=== PATIENT | female | born 1955 | race Caucasian/White ===

== ENCOUNTER → 2018-02-23 09:57 | Outpatient (CLI) | payer BC, SELFPAY ==
--- NOTE | 2018-02-23 10:01 | MM_ITS ---
MM Dig screening mamm BI w/CAD CAD Screening ORDERING PHYSICIAN : Lis Hernandez MD PATIENT AGE: 62 years GENDER: Female COMPARISON: Previous mammograms: October 2016, 199903 October 2013 INDICATION: No hormones. No new complaints Family history. Mother with breast cancer age 79 postmenopausal. TECHNIQUE: Standard CC and MLO images were obtained. R2 CAD reviewed. FINDINGS: Moderately dense breast bilaterally but with similar architecture and appearance to the previous studies No dominant mass nor suspicious calcifications.. Follow-up in one year adequate IMPRESSION: . stable bilateral mammogram. Moderately dense breast. Bilateral follow-up in one year recommended. BI-RADS Category: 1 Negative RECOMMENDED FOLLOW-UP: 1YR - 1 YEAR FOLLOW-UP (A letter has been sent to the patient regarding results of the study.)
--- NOTE | 2018-02-23 10:01 | XR_ITS ---
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 Low calcium intake Postmenopausal female. Takes levothyroxine and vitamin D. Also takes Actonel TECHNIQUE: DEXA scan hip and lumbar spine The most complete data summary and color graphic presentation of the today's ( and any prior ) DEXA findings are available in PACS. Definition and treatment guidelines included. COMPARISON: October 2016 DEXA LUMBAR SPINE: Normal bone density L1 and L3 vertebral body demonstrates the lowest T score = 1.0 with. The lower density L1 vertebra BMD equals 1.255 g/cm sq Overall mean lumbar L1-L4 T score 1.5 with BMD1.36 g/cm sq . prior DEXA the mean T score 1.1 with BMD was1.314g/cm sq Thus when comparing today's study to the prior exam there's been a 3.6% % increasing mean bone density at the lumbar spine. HIPS: Femoral neck density is best predictor of hip fracture risk . Left femoral neck demonstrates the lowest T score -2.4 with BMD0.698 g/cm sq . Right femoral neck T score -2.2 with BMD 0.737 Averaging region included gives today's overall Hip Mean T score -0.9 with BMD0.897 g/cm sq . 2014 DEXA overall hip T score -1.1 with mean BMD0.87 g/cm sq the Although this reflects a 3% increase decrease in overall mean bone density at the hips in the interval. We continue see osteoporosis at the femoral necks bilaterally IMPRESSION 1. LUMBAR SPINE: Normal bone density throughout lumbar spine and at all vertebral levels sampled 2. HIPS: Osteoporosis at Femoral Necks bilaterally most notable finding and hips.. T score at Left femoral neck -2.4 and right femoral neck -2.2 The however the overall averaged hip T score is = -0.9, With overall slight improvement in bone density both hip since 2015 prior DEXA WHO criteria for post-menopausal, Women: Normal: T-score at or above -1 SD Osteopenia: T-score between -1 and -2.5 SD Osteoporosis: T-score at or below -2.5 SD
== END ==
PROVIDERS: Family Provider Family Medicine; PCP Family Medicine; Visit Provider Family Medicine
DX: Z12.31 Encounter for screening mammogram for malignant neoplasm of breast (principal); N60.19 Diffuse cystic mastopathy of unspecified breast; M81.0 Age-related osteoporosis without current pathological fracture
CPT/HCPCS: 77067; 77080

== ENCOUNTER → 2019-02-25 09:40 | Outpatient (CLI) | payer OTHER, SELFPAY ==
--- NOTE | 2019-02-25 09:43 | MM_ITS ---
MM Dig screening mamm BI w/CAD ORDERING PHYSICIAN : Lis Hernandez MD PATIENT AGE: 63 years GENDER: Female COMPARISON: October 20162013 INDICATION: Routine screening mammogram.No hormones. No new complaints. Family history: Mother with breast cancer age 79 TECHNIQUE: Standard CC and MLO images were obtained. R2 CAD reviewed. FINDINGS: Moderately dense breast bilaterally, but with similar, stable appearance to previous studies. Mild asymmetry again noted. No discrete suspicious or dominant mass. No suspicious calcifications . Architectural distortion. RIGHT BREAST: Right breast appear stable. No significant new findings The slightly more evident glandular tissue at the superior right breast again noted is a long-standing stable feature yielding a mild asymmetry here. No new areas of concern LEFT BREAST: Left breast appears stable IMPRESSION: Stable mammogram with no significant new findings. Moderate dense breast BI-RADS Category: 1 Negative RECOMMENDED FOLLOW-UP: 1YR 1 YEAR FOLLOW-UP (A letter has been sent to the patient regarding results of the study.)
--- NOTE | 2019-02-25 09:44 | XR_ITS ---
XR DEXA axial skeleton HISTORY: ITS.REASON: OSTEOPENIA ORDERING PHYSICIAN: Lis Hernandez MD PATIENT AGE: 63 years COMPARISON: 02/23/2018 FINDINGS: The BMD measured at the Left femoral neck is 0.728 g/cm squared with a T score of -2.2. This is considered Osteopenic according to the World Health Organization criteria. Fracture risk is Moderate. Treatment is advised. The L1 L4 density has a T score of 1.2 which is decreased by 3%. The mean hip density has decreased also by 3%. IMPRESSION: Osteopenia with moderate fracture risk. Treatment is suggested. Recommend follow-up exam in February 2021
== END ==
PROVIDERS: PCP Family Medicine; Visit Provider Family Medicine
DX: Z12.31 Encounter for screening mammogram for malignant neoplasm of breast (principal); M85.89 Other specified disorders of bone density and structure, multiple sites
CPT/HCPCS: 77067; 77080

== ENCOUNTER → 2019-05-27 10:09 | Outpatient (CLI) | payer OTHER, SELFPAY ==
--- NOTE | 2019-05-27 10:14 | XR_ITS ---
XR sacrum coccyx min 2V CLINICAL INDICATION: Posttraumatic pain ITS.REASON: COCCYX PAIN ORDERING PHYSICIAN: Agnieszka Keita APRN PATIENT AGE: 63 years Comparison: None FINDINGS: No fracture or dislocation is evident. No lytic or blastic change. Facet arthritic changes are present at L4-L5 and L5-S1. Central pelvic calcification is noted IMPRESSION: No acute fracture
== END ==
PROVIDERS: PCP Family Medicine; Visit Provider Nurse Practitioner Family
DX: M53.3 Sacrococcygeal disorders, not elsewhere classified (principal)
CPT/HCPCS: 72220

== ENCOUNTER → 2020-05-19 07:39 | Outpatient (CLI) | payer OTHER, SELFPAY ==
--- NOTE | 2020-05-19 07:44 | MM_ITS ---
PROCEDURE: MM DIG SCREENING MAMM BI W/CAD Digital Breast Tomosynthesis Included CLINICAL INDICATION: SCREENING There is a history of breast cancer in the patient's mother diagnosed after menopause. COMPARISON: [facility] DIG MAMM-SCREEN ANDREA from 10/24/2016 [facility] MM Dig screening mamm BI w/CAD from 02/23/2018 [facility] MM Dig screening mamm BI w/CAD from 02/25/2019 TECHNIQUE: Standard CC and MLO images and 3D Tomosynthesis was obtained. R2 CAD reviewed. FINDINGS: Moderate diffuse fibroglandular densities are seen in both breast. There is slightly asymmetrical glandular elements upper-outer quadrant right breast. There is benign-appearing calcification right breast there are couple of tiny benign-appearing nodular densities near the axillary tail left breast which are stable and unchanged from previous exams. There is no suspicious lesion and no suspicious microcalcifications. IMPRESSION: Moderate breast density with no suspicious lesions seen BI-RAD Category: 2 Benign Finding(s) FOLLOW-UP: 1YR 1 Year Follow-up (A letter has been sent to the patient regarding results of the study.) Dictated by: Dr. Jan Johnson MD 05/21/2020 07:[address] Jan Johnson MD in [place] 05/21/2020 07:05
== END ==
PROVIDERS: PCP Family Medicine; Visit Provider Family Medicine
DX: Z12.31 Encounter for screening mammogram for malignant neoplasm of breast (principal); N60.19 Diffuse cystic mastopathy of unspecified breast
CPT/HCPCS: 77063; 77067

== ENCOUNTER → 2020-07-09 08:57 | Outpatient (CLI) | payer OTHER, SELFPAY ==
[2020-07-09 10:34] LABS: Coronavirus 19 IgG Antibody Negative (Negative); Coronavirus 19 IgM Antibody Negative (Negative)
== END ==
PROVIDERS: Visit Provider Internal Medicine Gastroenterology
DX: Z01.818 Encounter for other preprocedural examination (principal); Z12.11 Encounter for screening for malignant neoplasm of colon
CPT/HCPCS: 36415; 86328

== ENCOUNTER 2020-07-10 09:38 | Day surgery (SDC) | payer OTHER, SELFPAY ==
[2020-07-06 12:30] VITALS: BMI 23.6
[2020-07-10] VITALS (7 sets, daily range): BP systolic 94–148; BP diastolic 56–86; PULSE 53–92; RESP 14–18; TEMP 36.3–36.5; O2SAT 97–100
--- NOTE | 2020-07-10 12:12 | HMH.ANESCL ---
[facility] Anesthesia Checklist - Patient Identification Patient Identification: Arm Band - Structural Data Admitted From: Home Planned Operative Procedure/s: colonoscopy Consent for Planned Operative Procedure(s) Verified: Yes Verified Documents: Surgical Consent, History and Physical - NPO Status Verified Time NPO: 00:00 - Additional verifications Anesthesia Reactions: No - Airway Assessment C-Spine Mobility Assessed: Yes (mp2) TMJ Mobility Assessed: Yes Dentition: Good Dentition - Neurological Assessment Level of Consciousness: Awake, Alert - Anesthesia Plan Anesthesia Risk discussed: Yes Anesthesia Plan: Verified ASA Class: II Anesthesia Type: MAC [facility] History I have reviewed the patient's past medical history: Yes Medical History: Reports:: Hypertension Denies:: Cancer, Diabetes Mellitus Type 2, Internal Pacemaker, MRSA, Seizures *Have you ever received a pneumonia vaccine?: Yes *Have you received a flu vaccine this season?: Yes Anesthesia experience/problems:: nac Other Surgeries: Yes: Cholecystectomy. No: Pacemaker Amputation: No Fractures: No - *Social History Last grade of school completed: High school graduate Smoking Status: Former smoker Tobacco Type: cigarettes # Packs/Day (cigarettes): 1 Smoking End Date: 2009 Alcohol Intake: current Alcohol Intake Frequency:: holidays/special occasions only Substance Use Type: denies use *Occupational Status:: retired *Travel in the last 8 weeks: None Family Hx:: No significant family history
--- NOTE | 2020-07-10 12:28 | P.PCN_ITS ---
[facility] Procedure Note Procedure Note:: Colonoscopy Procedure Report: Colonoscopy with cold biopsies Endoscopist: Jordi Palacio II, MD Referring physician: Manish Hernandez MD Date of Procedure: July 10, 2020 Equipment: Olympus 180 variable stiffness pediatric colonoscope Sedation: MAC sedation Indication: Mrs. Billy is a 64-year-old female who is here for initial screening colonoscopy. She reports no abdominal pain, weight loss, change in her bowel habits or rectal bleeding. She reports no family history of colon cancer. Procedure: Prior to the procedure, a history and physical exam was performed, and patient's medications and allergies were reviewed. The risks, benefits and alternatives of the sedation and procedure were discussed with the patient. All questions were answered and informed consent was obtained. The patient was brought to the procedure room. Patient identification and proposed procedure were verified by the physician and the nurse. The patient was placed in a left lateral decubitus position and the scope was passed under direct vision. Throughout the procedure, the patient's blood pressure, pulse, and oxygen saturations were monitored continuously. The colonoscopy was accomplished without difficulty. The patient tolerated the procedure well. Findings: On digital rectal examination there was normal rectal tone. There were no external hemorrhoids. The colonoscope was introduced through the anal canal to the rectum and advanced to the cecum. The ileocecal valve and appendiceal orifice were identified. The scope was advanced a short distance into the ileum which appeared grossly normal. The scope was then withdrawn into the colon. The cecum, ascending, transverse, descending and sigmoid colon were grossly normal. There was a diminutive 2 to 3 mm polyp in the rectum that appeared to be hyperplastic and was removed via cold biopsy.. There were no mucosal abnormalities identified. Upon retroflexion within the rectum there were grade 1-2 internal hemorrhoids.The preparation was excellent throughout with [place] Preparation Score of 9. The cecal time was 12 minutes. Impression: 1. Diminutive hyperplastic appearing rectal polyp (2 to 3 mm) otherwise normal colonoscopy with intubation of the terminal ileum Plan: I will follow up the polyp pathology and recommend repeat colonoscopy again in 10 years based upon the polyp histology. I would encourage fiber supplementation on a long-term daily maintenance basis.
== END 2020-07-10 13:28 | disposition home or self-care (01) ==
LOC: OUTP 09:38
PROVIDERS: PCP Family Medicine; Visit Provider Internal Medicine Gastroenterology
PROC: 0DJD8ZZ Inspection of Lower Intestinal Tract, Via Natural or Artificial Opening Endoscopic (ICD-10-PCS; CPT 45378; principal; 2020-07-10 11:00)
DX: Z12.11 Encounter for screening for malignant neoplasm of colon (principal); K62.1 Rectal polyp; I10 Essential (primary) hypertension; Z90.49 Acquired absence of other specified parts of digestive tract; Z87.891 Personal history of nicotine dependence; E03.9 Hypothyroidism, unspecified; Z79.899 Other long term (current) drug therapy; Z79.82 Long term (current) use of aspirin
CPT/HCPCS: 45384

== ENCOUNTER → 2021-01-06 10:33 | Outpatient (CLI) | payer BC, SELFPAY ==
--- NOTE | 2021-01-06 10:45 | XR_ITS ---
PROCEDURE: XR FOOT LT MIN 3V CLINICAL INDICATION: LT FOOT FASCITIS Arch pain COMPARISON: CR FTL3 FOOT-LT-3 VIEWS from 12/22/2014 CR FTR3 FOOT-RT-3 VIEWS from 11/15/2016 FINDINGS: There is moderate 1st metatarsophalangeal degenerative change. There is a small incidental inferior calcaneal spur. There is indistinctness the soft tissue planes along the plantar aspect of the foot which can be associated with fasciitis. Correlate clinically. There are no other areas of degenerative change or bony abnormalities. IMPRESSION: Soft tissue appearance which could be a consistent with a clinical diagnosis of fasciitis. Dictated by: Diana Brandon MD 01/06/2021 13:25 Diana Brandon MD in [place] 01/06/2021 13:25
== END ==
PROVIDERS: PCP Family Medicine; Visit Provider Family Medicine
DX: M72.2 Plantar fascial fibromatosis (principal)
CPT/HCPCS: 73630

== ENCOUNTER → 2021-02-03 12:39 | Outpatient (CLI) | payer BC, SELFPAY ==
--- NOTE | 2021-02-03 12:59 | US_ITS ---
PROCEDURE: US TRANSVAGINAL CLINICAL INDICATION: CYSTITIS Recurrence of bacterial infection COMPARISON: No exams were available for comparison FINDINGS: UTERUS: 7cm x 4cmx 4cm with a combined endometrial thickness of 2mm LEFT OVARY: [id number] with a volume of 8.2ml. RIGHT OVARY: [id number] with a volume of 0.7ml. The uterus is retroflexed. There is 1.8 x 1.2 cm area heterogeneous echogenicity with central calcification along the anterior aspect of the body of the uterus consistent with a fibroid. There is an additional 2 point by 1.2 cm fibroid along the body of the uterus anteriorly and a 2.1 cm fibroid along the fundus of the uterus. Is a septated left ovarian left ovarian cyst at 3 x 2 cm. No cul-de-sac fluid is evident. IMPRESSION: Retroflexed uterus with at least 3 fibroids. Septated 3 cm left ovarian cyst. Suggest 6 month follow-up to confirm stability or resolution Dictated by: Wallace Hernández MD 02/03/2021 18:31 Wallace Hernández MD in [place] 02/03/2021 18:31
== END ==
PROVIDERS: PCP Family Medicine; Visit Provider Family Medicine
DX: N30.00 Acute cystitis without hematuria (principal)
CPT/HCPCS: 76830

== ENCOUNTER → 2022-02-04 10:02 | Outpatient (CLI) | payer BC, MEDICARE, SELFPAY ==
--- NOTE | 2022-02-04 10:10 | MM_ITS ---
PROCEDURE INFORMATION: Exam: MG Bilateral Screening 3D Mammography Exam date and time: 02/04/2022 10:22 AM Age: 66 years old Clinical indication: Encounter for screening mammogram for malignant neoplasm of breast TECHNIQUE: Imaging protocol: Bilateral Screening tomosynthesis and 2D mammography including computer-aided detection (CAD) when performed. COMPARISON: 1. MG MM DIG SCREENING MAMM BI W/CAD 05/19/2020 7:55 AM 2. MG [facility] MM Dig screening mamm BI w/CAD 02/25/2019 10:06 AM FINDINGS: MAMMOGRAPHY: Breast composition: The breast tissue is heterogeneously dense, which may obscure small masses. Mass: None. Architectural distortion: None. Calcifications: No suspicious calcifications. Asymmetric density: None. Skin thickening: None. Axillary adenopathy: None. IMPRESSION: No mammographic evidence of malignancy. Annual screening is recommended unless otherwise clinically indicated. ASSESSMENT: BI-RADS Category 1: Negative
== END ==
PROVIDERS: PCP Family Medicine; Visit Provider Family Medicine
DX: Z12.31 Encounter for screening mammogram for malignant neoplasm of breast (principal)
CPT/HCPCS: 77063; 77067

== ENCOUNTER → 2023-05-29 09:14 | Outpatient (CLI) | payer BC, MEDICARE, SELFPAY ==
--- NOTE | 2023-05-29 09:18 | XR_ITS ---
FINAL REPORT CLINICAL HISTORY: Osteoporosis screening COMPARISON: None FINDINGS: Using L1-4, the bone mineral density of the spine is 1.118 g/cm2, corresponding to T-score of 0.6, within the normal range. Using the left hip, the bone mineral density of the femoral neck is 0.591 g/cm2, corresponding to a T-score of -2.3, consistent with low bone density. Using the right hip, the bone mineral density of the femoral neck is 0.601 g/cm2, corresponding to a T-score of -2.2, consistent with low bone density. FRAX is not reported because the patient is being treated for osteoporosis. NOTE: T-score: Standard deviation compared with peak bone mass of young adult mean. *Following the recommendations of the International Society of Bone densitometry, classification of hip BMD is based on the lower of two T-scores; total hip or femoral neck. IMPRESSION: Normal bone mineral density of the lumbar spine, with diminished bone mineral density in the bilateral hips consistent with low bone density. Reviewed, Interpreted and Dictated by Charles Garrison III, MD Transcribed by Mariam El Authenticated and . [facility]
--- NOTE | 2023-05-29 09:19 | MM_ITS ---
PROCEDURE INFORMATION: Exam: MG Bilateral Screening 3D Mammography Exam date and time: 05/29/2023 9:09 AM Age: 67 years old Clinical indication: Screening examination TECHNIQUE: Imaging protocol: Bilateral Screening tomosynthesis and 2D mammography including computer-aided detection (CAD) when performed. COMPARISON: 1. MG MM DIG SCREENING MAMM BI W/CAD 02/04/2022 10:22 AM 2. MG MM DIG SCREENING MAMM BI W/CAD 05/19/2020 7:55 AM FINDINGS: MAMMOGRAPHY: Breast composition: The breasts are heterogeneously dense, which may obscure small masses. Mass: None. Architectural distortion: None. Calcifications: No suspicious calcifications. Asymmetric density: None. Skin thickening: None. Axillary adenopathy: None. IMPRESSION: No mammographic evidence of malignancy. Annual screening is recommended unless otherwise clinically indicated. ASSESSMENT: BI-RADS Category 1: Negative
== END ==
PROVIDERS: PCP Family Medicine; Visit Provider Family Medicine
DX: Z12.31 Encounter for screening mammogram for malignant neoplasm of breast; Z78.0 Asymptomatic menopausal state
CPT/HCPCS: 77063; 77067; 77080

== ENCOUNTER 2024-07-25 09:34 | Outpatient (CLI) | payer MEDICARE, SELFPAY ==
--- NOTE | 2024-07-25 09:53 | MM_ITS ---
PROCEDURE INFORMATION: Exam: MG Bilateral Screening 3D Mammography Exam date and time: 07/25/2024 9:42 AM Age: 68 years old Clinical indication: Screening examination TECHNIQUE: Imaging protocol: Bilateral Screening tomosynthesis and 2D mammography including computer-aided detection (CAD) when performed. COMPARISON: 1. MG MM DIG SCREENING MAMM BI W/CAD 05/29/2023 9:09 AM 2. MG MM DIG SCREENING MAMM BI W/CAD 02/04/2022 10:22 AM FINDINGS: MAMMOGRAPHY: Breast composition: There are scattered areas of fibroglandular density. Mass: None. Architectural distortion: None. Calcifications: No suspicious calcifications. Asymmetric density: None. Skin thickening: None. Axillary adenopathy: None. IMPRESSION: No mammographic evidence of malignancy. Annual screening is recommended unless otherwise clinically indicated. ASSESSMENT: BI-RADS Category 1: Negative
== END 2024-07-25 23:59 | disposition home or self-care (01) ==
LOC: RAD 09:35
PROVIDERS: PCP Family Medicine; Visit Provider Family Medicine
DX: Z12.31 Encounter for screening mammogram for malignant neoplasm of breast (principal)
CPT/HCPCS: 77063; 77067

== ENCOUNTER 2025-05-28 13:38 | Outpatient (CLI) | payer MEDICARE, SELFPAY ==
--- OUTSIDE RECORDS SUMMARY | 2024-12-09 04:15 | XMS_ITS ---
Author Organization [facility] Address 1210 [facility] 36 [facility] [address] [place] [id number] Care Team Providers Care Rug Dry Room Attendant Name Role Phone Mookie Hernandez Primary Care Provider RAOUL MCLAUGHLIN Unavailable Unavailable Results Component Value Reference Range Notes P-Comprehensive Metabolic Pa twila (CMP) Reviewed date:12/12/2024 12:41:50 PM Interpretation:Normal Performing Lab: Notes/Report: Test performed by [facility], [address] , [address], [place] [address] Heber Morris MD, Spindraw Operator CLIA: [id number] Sodium 143 135-145 mmol/L Potassium 4.5 3.5-5.3 [...] Interpretation:satisfactory Performing Lab: Notes/Report: Test performed by [facility], [address] , [address], [place] [address] Heber Morris MD, Spindraw Operator CLIA: [id number] Cholesterol 198 <200 mg/dL Triglycerides 130 <150 [...] Interpretation:Normal Performing Lab: Notes/Report: Test performed by [facility] [address] , [address], [place] [address] Heber Morris MD, Spindraw Operator CLIA: [id number] TSH 2.43 0.43-5.25 mU/L REASON FOR VISIT blood work Encounters Encounter Location Date Provider Diagnosis [facility] [address] [facility] [address] [place] [id number] 12/09/2024 Mookie Hernandez Essential hypertensi on I10 ; Pure hypercholesterolemia E78.00 and Hypothyroidism (acquired) E03.9 Assessments Encounter Date Diagnosis (ICD Code) Assessment Notes Treatment Notes Treatment Clinical Notes Section Notes 12/09/2024 Essential hypertensi on (ICD-10 - I10) 12/09/2024 Pure hypercholesterolemia (ICD-10 - E78.00) 12/09/2024 Hypothyroidism (acquired) (ICD-10 - E03.9) Plan Of Treatment Next Appt Details Provider Name:Mookie Kramer er, 07/17/2025 01:45:00 PM, [address], [address], [place], [phone], Progress Notes * Antonio SERRANO: 6 (69 yo F)Acc No.[id number]:12/09/2024 Patient: Omar MCWILLIAMSCara Provider: Mookie Hernandez M.D. :1955 A ge:69 Y S ex:Female Date:12/09/2024 Address:[address] [place] [address] [id number] Subjective: * Chief Complaints: [...] Electronic signature of Mookie Hernandez MD on 05/28/2025 at 01:41 PM EDT Sign off status: Pending * Provider: Mookie Hernandez M.D. Date: 0 12/09/2024 Generated for Racquel lei/Yaima/Isaelitting on: 0 05/28/2025 01:41 PM EDT
--- OUTSIDE RECORDS SUMMARY | 2025-04-17 09:30 | XMS_ITS ---
[facility] Address 1210 [facility] [address] [place] [phone] Care Team Providers Care Group Art Supervisor Name Role Phone Mookie Hernandez Primary Care Provider RAOUL MCLAUGHLIN Unavailable Unavailable Allergies No Known Allergies REASON FOR VISIT 4 month ckup, Needs labs, bone density screening, & Prevnar vaccine Medications Medication SIG (Take, Route, Frequency, Duration) Notes Start Date End Date Status Hyoscyamine Sulfate 0.125 MG 1 tab(s) or ally three times a day as needed; Duration: 30 day(s) Active Risedronate Sodium 35 MG 1 tab(s) orally once a week; Duration: 30 day(s) Active Citracal Slow Release 600-40-500 MG-MG-UNIT 2 tab(s) orally once a day (in the morning); Duration: 30 day(s) 11/09/2016 Active Co-Enzyme Q10 200 MG as directed Orally 11/27/2023 Active Vitamin D3 50 MCG (1999 UT) 1 tab(s) ora lly once a day 11/05/2013 Active Levothyroxine Sodium 25 MCG 1 tablet in the morning on an empty stomach Orally Once a day; Duration: 30 days Active PreserVision AREDS 2 - as directed Orally Active Lisinopril 5 MG 1 tab(s) orally once a day; Duration: 30 days Active oxyBUTYnin Chloride 5 MG 1 tablet Orally Twice a day; Duration: 30 days 03/13/2025 Active Pitavastatin Calcium 2 mg 1 tablet Orall y Once a day; Duration: 30 days Active buPROPion HCl ER (SR) 100 MG 1 tablet in the morning Orally Once a day; Duration: 30 day(s) 04/17/2025 Active Immunizations Vaccine Route Administration Date Status Comme nts Prevnar (PCV20) IM Intramuscular 04/17/2025 Pending Vital Signs Weight 148.6 lbs 04/17/2025 Blood pressure systolic 120 mm Hg 04/17/20 25 Blood pressure diastolic 80 mm Hg 025 Heart Rate 61 /min 04/17/2025 Height 64 in 04/17/2025 BMI 25.5 kg/m2 04/17/2025 Encounters Encounter Location Date Provider Diagnosis [facility] [address] [place] [id number] 04/17/2025 Mookie Hernandez Essential hypertensi on I10 ; Osteopenia M85.80 ; Pure hypercholesterolemia E78.00 ; Encounter for immunization Z23 ; Weight disorder R63.8 and BMI 25.0-25.9,adult Z68.25 Assessments Encounter Date Diagnosis (ICD Code) Assessment Notes Treatment Notes Treatment Clinical Notes Section Notes 04/17/2025 Essential hypertensi on (ICD-10 - I10) 04/17/2025 Osteopenia (ICD-10 - M85.80) 04/17/2025 Pure hypercholesterolemia (ICD-10 - E78.00) 04/17/2025 Encounter for immunization (ICD-10 - Z23) 04/17/2025 Weight disorder (ICD -10 - R63.8) 04/17/2025 BMI 25.0-25.9,adult (ICD-10 - Z68.25) Plan Of Treatment Medication Medication Name Sig Start Date Stop Date Notes buPROPion HCl ER (SR) 100 MG 1 tablet in the morning Orally Once a day; Duration: 30 day(s) 04/17/2025 Pending Test Test Name Order Date DEXA Hip and Spine 04/17/2025 Next Appt Details Follow Up: 3 Months, Reason: Provider Name:Mookie Kramer er, 07/17/2025 01:45:00 PM, [address], [address], [place], [phone], Progress Notes * Antonio SERRANO: 6 (69 yo F)Acc No.[id number]:04/17/2025 Progress Notes Patient: Cara LOAIZA Provider: Mookie Hernandez M.D. :1955 A ge:69 Y S ex:Female Date:04/17/2025 Address:[address] [place] [address] [id number] Subjective: * Chief Complaints: * 1 . 4 month ckup. 2. Needs labs, bone density screening, & Prevnar vaccine. * HPI: C ardiology: The patient is here for a check up on Hypertension and Hypothyroidism. Pt states she is doing good and denies any new concerns. Pt is not fasting. Denies : Chest Pain. [...] bite , elbow fracture 02/2014, cataracts OU -2022. * Hospitalization/Major Diagno stic Procedure: H ER- flank pain, colic 09/06/19. * Family History: F ather: alive, Alzheimers. M other: alive. S iblings: sisters with hyperlipidemia.?1 brother(s) , 2 sister(s) . 1 son(s) , 1 daughter(s) . . Brother with history of CAD, [place]. * Social History: C URRENT TOBACCO USE [...] tab(s) orally once a week , Taking Hyoscyamine Sulfate 0.125 MG Tablet Disintegrating 1 tab(s) orally three times a day as needed , Taking Levothyroxine Sodium 25 MCG Tablet 1 tablet in the morning on an empty stomach Orally Once a day , Taking Lisinopril 5 MG Tablet 1 tab(s) orally once a day , Taking oxyBUTYnin Chloride 5 MG Tablet 1 tablet Orally Twice a day , Taking Pitavastatin Calcium 2 mg Tablet 1 tablet Orally Once a day , Medication List reviewed and reconciled with the patient * Allergies: N .K.D.A. Objective: * Vitals: W t: 148.6, Temp: 98.3, BP: 120/80, HR: 61, Nurse: RAKAN, Ht: 64, BMI:25.5. * Examination: G eneral Examination: General Appearance: [...] o leg edema. Assessment: * Assessment: 1. E ssential hypertension - I10 2 . O steopenia - M85.80 3 . P ure hypercholesterolemia - E78.00 4 . E ncounter for immunization - Z23? 5. W eight disorder - R63.8 6 . B [place] 25.0-25.9,adult - Z68.25 Plan: * Treatment: 2.?Weight disorder? Start buPROPion HCl ER (SR) Tablet Extended Release 12 Hour, 100 MG, 1 tablet in the morning, Orally, Once a day, 30 day(s), 30.?? * Immunizations: Prevnar (PCV20) : 0.5 mL (Route: Intramuscular) on Left Deltoid (Pending) (Encounter for immunization) * Procedure Codes: G 2211 Complex e/m visit add on, G8950 PREHTN/HTN BP DOC INDCD F/U DOC, G8752 MOST RECENT SYSTOLIC BP < 140MM HG, G8754 MOST RECENT DIASTOLIC BP < 90MM HG, G8420 BMI<30 AND >=22 CALC & DOCU, 4040F PNEUMOC IMM ORDER/ADMIN, 3017F COLORECTAL CA SCREEN DOC REV * Preventive Medicine: Screening / Special Tests: C olonoscopy with Dr Palacio with polyps, recommend f/u in 10 years. * Follow Up: 3 Months * Images: Billing Information: * Visit Code: 68180 Office Visit, Est Pt., Level 4. * Procedure Codes: G2211 Complex e/m visit add on. G8950 PREHTN/HTN BP DOC INDCD F/U DOC. G8752 MOST RECENT SYSTOLIC BP < 140MM HG. G8754 MOST RECENT DIASTOLIC BP < 90MM HG. G8420 BMI<30 AND >=22 CALC & DOCU. 4040F PNEUMOC IMM ORDER/ADMIN. 3017F COLORECTAL CA SCREEN DOC REV. * Electronic signature of Mookie Hernandez MD on 05/28/2025 at 01:41 PM EDT Sign off status: Pending * Provider: Mookie Hernandez M.D. Date: 04/17/2025 Generated for Racquel lei/Yaima/eTransmitting on: 0 05/28/2025 01:41 PM EDT History and Physical Notes * HPI [...]
--- OUTSIDE RECORDS SUMMARY | 2025-05-26 10:00 | XMS_ITS ---
Author [facility] Address 1210 [facility] [address] [place] [phone] Care Team Providers Care Storage Manager Name Role Phone Mookie Hernandez Primary Care Provider RAOUL MCLAUGHLIN Unavailable Unavailable Allergies No Known Allergies REASON FOR VISIT lump under arm Medications Medication SIG (Take, Route, Frequency, Duration) Notes Start Date End Date Status Hyoscyamine Sulfate 0.125 MG 1 tablet on the tongue and allow to dissolve as needed orally three times a day as needed; Duration: 30 days Active buPROPion HCl ER (SR) 100 MG 1 tablet in the morning Orally Once a day; Duration: 30 day(s) 04/17/2025 Not-Taking Risedronate Sodium 35 mg TAKE ONE TABLET BY MOUTH ONCE WEEKLY; Duration: 28 Active Levothyroxine Sodium 25 MCG 1 tablet in the morning on an empty stomach Orally Once a day; Duration: 30 days Active Myrbetriq 50 MG 1 tablet Orally Once a day; Duration: 30 days Active Vitamin D3 50 MCG (1999 UT) 1 tab(s) orally once a day 11/05/2013 Active Co-Enzyme Q10 200 MG as directed Orally 11/27/2023 Active Pitavastatin Calcium 2 mg 1 tablet Orall y Once a day; Duration: 30 days Active Lisinopril 5 MG 1 tab(s) orally once a day; Duration: 30 days Active oxyBUTYnin Chloride 5 MG 1 tablet Orally Twice a day; Duration: 30 days 03/13/2025 Not-Taking PreserVision AREDS 2 - as directed Orally Active Citracal Slow Release 600-40-500 MG-MG-UNIT 2 tab(s) orally once a day (in the morning); Duration: 30 day(s) 11/09/2016 Active Vital Signs Weight 147.2 lbs 05/26/2025 Blood pressure systolic 120 mm Hg 05/26/20 25 Blood pressure diastolic 80 mm Hg 025 Heart Rate 69 /min 05/26/2025 Height 64 in 05/26/2025 BMI 25.26 kg/m2 05/26/2025 Encounters Encounter Location Date Provider Diagnosis [facility] 12[address] [facility] 36 [facility] [address] [place] [phone] 05/26/2025 Mookie Hernandez Lipoma of torso D17. 1 and Urinary incontinence, mixed N39.46 Assessments Encounter Date Diagnosis (ICD Code) Assessment Notes Treatment Notes Treatment Clinical Notes Section Notes 05/26/2025 Lipoma of torso (ICD-10 - D17.1) 05/26/2025 Urinary incontinence, mixed (ICD-10 - N39.46) Plan Of Treatment Medication Medication Name Sig Start Date Stop Date Notes Myrbetriq 50 MG 1 tablet Orally Once a day; Duration: 30 days Pending Test Test Name Order Date US: left axilla 05/26/2025 Next Appt Details Follow Up: as scheduled, Justina son: Provider Name:Mookie Kramer er, 07/17/2025 01:45:00 PM, [address], [address], [place], [id number], Progress Notes * Yeni SERRANOB: 6 (69 yo F)Acc No.[id number]:05/26/2025 Progress Notes Patient: Cara LOAIZA Provider: Mookie Hernandez M.D. :1955 A ge:69 Y S ex:Female Date:05/26/2025 Address:[address] [place] [address] [id number] Subjective: * Chief Complaints: * 1 . Lump under arm. * HPI: E lbow/Arm: The pt is here today with c/o a lump in the left axilla. Pt states the knot os firm and non tender. * ROS: D ERMATOLOGY: no R derrick. [...] -2022. * Hospitalization/Major Diagno stic Procedure: H [facility] ER- flank pain, colic 09/06/19. * Family History: F ather: alive, Alzheimers. M other: alive. S iblings: sisters with hyperlipidemia.?1 brother(s) , 2 sister(s) . 1 son(s) , 1 daughter(s) . . Brother with history of CAD, [place]. * Social History: C URRENT TOBACCO USE S moking Status: Patient does NOT smoke, Former Smoker: Yes, Quit smokin, Smoking pack year history: 1. C affeine: yes, frequency:coffee, pop and tea, qd. Home smoke detector use: no. Marital Status: . Alcohol: Yes, Type: , Frequency: ,Years: , Determination:rum and diet coke, 2-3 glasses QD. * Medications: T aking Myrbetriq 50 MG Tablet Extended Release 24 Hour 1 tablet Orally Once a day , Taking PreserVision AREDS 2 - Capsule as directed Orally , Taking Citracal Slow Release 600-40-500 MG-MG-UNIT Tablet Extended Release 24 Hour 2 tab(s) orally once a day (in the morning) , Taking Co-Enzyme Q10 200 MG Capsule as directed Orally , Taking Vitamin D3 50 MCG (1999 UT) Tablet 1 tab(s) orally once a day , Taking Lisinopril 5 MG Tablet 1 tab(s) orally once a day , Taking Pitavastatin Calcium 2 mg Tablet 1 tablet Orally Once a day , Taking Risedronate Sodium 35 mg Tablet TAKE ONE TABLET BY MOUTH ONCE WEEKLY , Taking Levothyroxine Sodium 25 MCG Tablet 1 tablet in the morning on an empty stomach Orally Once a day , Taking Hyoscyamine Sulfate 0.125 MG Tablet Disintegrating 1 tablet on the tongue and allow to dissolve as needed orally three times a day as needed , Not-Taking oxyBUTYnin Chloride 5 MG Tablet 1 tablet Orally Twice a day , Not-Taking buPROPion HCl ER (SR) 100 MG Tablet Extended Release 12 Hour 1 tablet in the morning Orally Once a day , Medication List reviewed and reconciled with the patient * Allergies: N .K.D.A. Objective: * Vitals: W t: 147.2, Temp: 98.1, BP: 120/80, HR: 69, Nurse: RAKAN, Ht: 64, BMI:25.26. * Examination: G eneral Examination: General Appearance: N AD, appears healthy, pleasant, Color good. E xtremities: 3 cm left axillary lesion that has the consistancy of a lipoma. ? Assessment: * Assessment: 1. L ipoma of torso - D17.1 (Primary) 2 . U rinary incontinence, mixed - N39.46 Plan: * Treatment: 2.?Urinary incontinence, mixed? Refill Myrbetriq Tablet Extended Release 24 Hour, 50 MG, 1 tablet, Orally, Once a day, 30 days, 30 Tablet, Refills 5.?? * Follow Up: a s scheduled * Images: Billing Information: * Visit Code: 40741 Office Visit, Est Pt., Level 3. * Procedure Codes: * Electronic signature of Mookie Hernandez MD on 05/28/2025 at 01:40 PM EDT Sign off status: Pending * Provider: Mookie Hernandez M.D. Date: 05/26/2025 Generated for Racquel lei/Yaima/eTherbiesmitting on: 05/28/2025 01:40 PM EDT History and Physical Notes * Examination Category Sub-Category Detail Notes Category Not es General Examination Extremities: 3 cm left ax illary lesion that has the consistancy of a lipoma General Appearance: NAD, appears healthy , pleasant, Color good
--- OUTSIDE RECORDS SUMMARY | 2025-05-28 13:41 | XMS_ITS | Data Portability ---
Author Organization [facility] HERMES Scott MASON CLOSED Address [address] [facility] [address] [place] [address] Assessment No assessment recorded. Plan of Treatment Reminders Order Date Submit Date Provider Last Modified By Organization Details Last Modified Time Details Appointments None record ed. Lab None record ed. Referral None record ed. Procedures None record ed. Surgeries None record ed. Imaging None record ed. Medication Orders None record ed. Patient TargetsNo targets recorded. Patient InstructionsNo instructions recorded. Reason for Referral None Reported. Results Created Date Observation Date Name Description Value Unit Range Abnormal Flag Note LastModifiedBy Organization Detail LastModifiedTime 05/24/20 22 05/17/2022 audio gram No observ ation record ed. BARCODE Not Available 2021 10:59:09 Result Notes None recorded. Procedures Surgical History Date Name Laterality Status Provider Name and Address Organization Details Recorded Time 2 Tympanogram completed SULEMAN BELEN, AUD [address] [place], [address], [facility] 05/17/2022 15:09:01 2 Audiogram completed SULEMAN ZAIDA-KEVIN, AUD [address] [place], [address], [facility] 05/17/2022 15:09:13 Imaging Results None recorded. Procedure Notes None recorded. Medical Equipment None Reported. Medications Name Sig Start Date Stop Date Status Note LastModified by Organization Details LastModified Time neomycin-polymy catracho-hydrocort 3.5 mg/mL-10,000 unit/mL-1 % ear solution active Not Available Not Available Not Available ciprofloxacin 500 mg tablet active Not Available Not Availabl e Not Available levothyroxine 25 mcg tablet active Not Available Not Availabl e Not Available hyoscyamine 0.125 mg sublingual tablet active Not Available Not Available Not Available lisinopril 5 mg tablet active Not Available Not Available Not Available methylprednisol one 4 mg tablets in a dose pack active Not Available Not Available No t Available fluticasone propionate 50 mcg/actuation nasal spray,suspensio n active Not Available Not Available Not Available amoxicillin 875 mg-potassium clavulanate 125 mg tablet active Not Available Not Available No t Available risedronate 35 mg tablet active Not Available Not Available No t Available azelastine 205.5 mcg (0.15 %) nasal spray active Not Available Not Availab le Not Available Contrave 8 mg-90 mg tablet,extended release TAKE 2 TABLETS BY MOUTH TWICE A DAY active Not Available Not Available No t Available Vitals None Recorded Social History None recorded. Functional Status None recorded. Mental Status None recorded. Family History Nothing Reported. Medical History No medical history recorded. Gynecological HistoryNo gynecological history recorded. Obstetrics History GPAL:G 0 P 0 0 0 0 Past Encounters Encounter ID Performer Location Encounter Start Date Encounter Closed Date Diagnosis/Indication Diagnosis SNOMED-CT Code Diagnosis ICD10 Code Diagnosis Note [id number] SULEMAN IRWIN NG, [facility] [place] [facility] [address] [place] [address] 05/17/2022 14:23:52 05/17/2022 15:59:22 Sensorineural hearing loss of bilateral ears 227912204 H90.3 Dysfunctio n of bilateral eustachian tubes [id number] 025231 H69.93 Health Concerns Section Related Observation LastModified by Organization Detai ls LastModified Time None Recorded Concern Status LastModified by Organization Details LastModified Time None Recorded Advance Directives Directive None Recorded Payers Insurance Date Sequence Insurance Name Policy Number Policy Parr Covered Member ID Parr Member ID Guarantor Name 05/14/2022 2 [place] Cara Lauren Wenceslao [id number] Cara Lauren Wenceslao 05/14/2022 1 [place] [id number] Cara Lauren Wenceslao [id number] Cara Lauren Wenceslao 05/12/2022 2 [place]MEDICARE REPLACEMENT REGIONAL PPO) [id number] Cara Billy [id number] Cara Billy OBGyn Episode No OBEpisode recorded.
--- OUTSIDE RECORDS SUMMARY | 2025-05-28 13:41 | XMS_ITS ---
Author Organization Unknown Medications Medication Instructions Effective Dates (start - stop) Status lisinopril 5 MG Oral Tablet 2021T:00:00.000+00:00 - Completed pitavastatin calcium 4 MG Or al Tablet [Livalo] [id number]:00:00.000+00:0 0 - Completed lisinopril 5 MG Oral Tablet 2021:00:00.000+00:00 - Completed pitavastatin calcium 2 MG Or al Tablet [Livalo] 8192-63-93R73:00:00.000+00:0 0 - Completed lisinopril 5 MG Oral Tablet 2022:00:00.000+00:00 - Completed lisinopril 5 MG Oral Tablet 2021:00:00.000+00:00 - Completed lisinopril 5 MG Oral Tablet 2021:00:00.000+00:00 - Completed lisinopril 5 MG Oral Tablet 2022:00:00.000+00:00 - Completed lisinopril 5 MG Oral Tablet 2022:00:00.000+00:00 - Completed levofloxacin 750 MG Oral Tablet [id number]:00:00.000+00:00 - Completed erythromycin 0.005 MG/MG Ophthalmic Ointment [id number]:00:00.000+00:0 0 - Completed lisinopril 5 MG Oral Tablet 2022:00:00.000+00:00 - Completed lisinopril 5 MG Oral Tablet 2022:00:00.000+00:00 - Completed lisinopril 5 MG Oral Tablet 2021:00:00.000+00:00 - Completed lisinopril 5 MG Oral Tablet 2021:00:00.000+00:00 - Completed pitavastatin calcium 2 MG Or al Tablet [Livalo] [id number]:00:00.000+00:0 0 - Completed lisinopril 5 MG Oral Tablet 2022:00:00.000+00:00 - Completed ciprofloxacin 500 MG Oral Tablet [id number]:00:00.000+00:00 - Completed {4 (risedronate sodium 35 MG Oral Tablet) } Pack [id number]:00:00.000+00:0 0 - Completed {4 (risedronate sodium 35 MG Oral Tablet) } Pack [id number]:00:00.000+00:0 0 - Completed hyoscyamine sulfate 0.125 MG Sublingual Tablet 3236-60-70P27:00:00.000+00:0 0 - Completed hyoscyamine sulfate 0.125 MG Sublingual Tablet 7525-55-38G31:00:00.000+00:0 0 - Completed hyoscyamine sulfate 0.125 MG Sublingual Tablet 7119-56-47R65:00:00.000+00:0 0 - Completed {4 (risedronate sodium 35 MG Oral Tablet) } Pack [id number]:00:00.000+00:0 0 - Completed hyoscyamine sulfate 0.125 MG Sublingual Tablet [id number]:00:00.000+00:0 0 - Completed hyoscyamine sulfate 0.125 MG Sublingual Tablet [id number]:00:00.000+00:0 0 - Completed {4 (risedronate sodium 35 MG Oral Tablet) } Pack [id number]:00:00.000+00:0 0 - Completed hyoscyamine sulfate 0.125 MG Sublingual Tablet [id number]:00:00.000+00:0 0 - Completed {4 (risedronate sodium 35 MG Oral Tablet) } Pack [id number]:00:00.000+00:0 0 - Completed {4 (risedronate sodium 35 MG Oral Tablet) } Pack [id number]:00:00.000+00:0 0 - Completed {4 (risedronate sodium 35 MG Oral Tablet) } Pack [id number]:00:00.000+00:0 0 - Completed {4 (risedronate sodium 35 MG Oral Tablet) } Pack [id number]:00:00.000+00:0 0 - Completed ciprofloxacin 500 MG Oral Tablet [id number]:00:00.000+00:00 - Completed hyoscyamine sulfate 0.125 MG Sublingual Tablet [id number]:00:00.000+00:0 0 - Completed {4 (risedronate sodium 35 MG Oral Tablet) } Pack [id number]:00:00.000+00:0 0 - Completed - 2015-06-96B80:00 :00.000+00:00 - Completed {4 (risedronate sodium 35 MG Oral Tablet) } Pack [id number]:00:00.000+00:0 0 - Completed {4 (risedronate sodium 35 MG Oral Tablet) } Pack [id number]:00:00.000+00:0 0 - Completed {4 (risedronate sodium 35 MG Oral Tablet) } Pack [id number]:00:00.000+00:0 0 - Completed 12 HR bupropion hydrochlorid e 90 MG / naltrexone hydrochloride 8 MG Extended Release Oral Tablet [Contrave] [id number]:00:00.000+00:0 0 - Completed 12 HR bupropion hydrochlorid e 90 MG / naltrexone hydrochloride 8 MG Extended Release Oral Tablet [Contrave] [id number]:00:00.000+00:0 0 - Completed Patient Care team information Name Category Status Period Participants - - Proposed period not known -
--- OUTSIDE RECORDS SUMMARY | 2025-05-28 13:41 | XMS_ITS | Patient Health Record ---
Author Organization [facility] Address 1210 [facility] 36 [facility] [address] [place] [id number] Care Team Providers Care Clerk Of Scales Name Role Phone Mookie Hernandez Primary Care Provider RAOUL MCLAUGHLIN Unavailable Unavailable Veronique Mcnulty Unavailable [phone] Chata Keita Unavailable [phone] Elida Bullock Unavailable [phone] Allergies No Known Allergies Results Component Value Reference Range Notes P-Comprehensive Metabolic Pa twila (CMP) Reviewed date:12/12/2024 12:41:50 PM Interpretation:Normal Performing Lab: Notes/Report: Test performed by [facility], [address] , [address], [place] [address] Heber Morris MD, Patch Finisher CLIA: [id number] Sodium 143 135-145 mmol/L Potassium 4.5 3.5-5.3 [...] Interpretation:satisfactory Performing Lab: Notes/Report: Test performed by [facility] [address] [place] [address] , [address], [place] [address] Heber Morris MD, Patch Finisher CLIA: [id number] Cholesterol 198 <200 mg/dL Triglycerides 130 <150 [...] ATPIII guidelines LDL/HDL Ratio 2.0 <3.3 Ratio ____ LDL Cholesterol Patient History ____ Test Date: 01/29/2024 LDL Results: 114 Units: mg/dL % Change: -13% ---- Test Date: 08/02/2024 LDL Results: 160 Units: mg/dL % Change: +40% ---- Test Date: 12/09/2024 LDL Results: 114 Units: mg/dL % Change: -28% ____ P-TSH Reviewed date:12/12/2024 12:41:50 PM Interpretation:Normal Performing Lab: Notes/Report: Test performed by [facility] [address] [place] [address] , [place] [address] Heber Morris MD, Patch Finisher CLIA: [id number] TSH 2.43 0.43-5.25 mU/L Mammogram Reviewed date:07/31/2024 02:12:06 PM Interpretation:Negative, annual f/u Performing Lab: Notes/Report: Negative, annual f/u result Negative, annual f/u P-Comprehensive Metabolic Pa twila (CMP) Reviewed date:08/05/2024 10:21:37 AM Interpretation:Normal Performing Lab: Notes/Report: Test performed by [facility] [address] [place] [address] , [address], [place] [address] Heber Morris MD, Patch Finisher CLIA: [id number] Sodium 142 135-145 mmol/L Potassium 4.7 3.5-5.3 mmol/L Chloride 103 97-108 mmol/L CO2 28 22-32 mmol/L Glucose 66 65-99 mg/dL BUN 11 8-23 mg/dL Creatinine 0.76 0.50-1.00 mg/dL Calcium 9.7 8.6-10.4 mg/dL eGFR by Creatinine 85 >59 mL/min/1.73m2 Protein 6.7 6.0-8.3 g/dL Albumin 4.5 3.5-5.3 g/dL Alkaline Phosphatase 50 35-121 IU/L ALT (SGPT) 14 <5-47 IU/L AST (SGOT) 18 <5-40 IU/L Bilirubin, Total 0.3 <0.2-1.2 mg/dL A/G Ratio 2.0 1.1-2.5 P-Lipid Panel Reviewed date:08/05/2024 10:21:36 AM Interpretation:chol 252, trigs 166, non-hdl 193, ldl 160 Performing Lab: Notes/Report: Test performed by [facility], [address] , [address], [place] [address] Heber Morris MD, Patch Finisher CLIA: [id number] Cholesterol 252 <200 mg/dL Triglycerides 166 <150 mg/dL HDL Cholesterol 59 >39 mg/dL Cholesterol / HDL Ratio 4.27 0.00-4.44 Ratio Non-HDL Cholesterol 193 <130 mg/dL LDL Cholesterol (Calculation) 160 <130 mg/dL LDL Cholesterol Levels* Less than 100 mg/dL Optimal 100 to 129 mg/dL Near Optimal/ Above Optimal 130 to 159 mg/dL Borderline High 160 to 189 mg/dL High 190 mg/dL and above Very High * Categories as recommended by the 2004 ATPIII guidelines LDL/HDL Ratio 2.7 <3.3 Ratio ____ LDL Cholesterol Patient History ____ Test Date: 04/26/2023 LDL Results: 132 Units: mg/dL % Change: - ---- Test Date: 01/29/2024 LDL Results: 114 Units: mg/dL % Change: -13% ---- Test Date: 08/02/2024 LDL Results: 160 Units: mg/dL % Change: +40% ____ P-TSH Reviewed date:08/05/2024 10:21:37 AM Interpretation:Normal Performing Lab: Notes/Report: Test performed by [facility] [address] [place] [address] , [facility] [address], [place] [address] Heber Morris MD, Patch Finisher CLIA: [id number] TSH 2.19 0.43-5.25 mU/L Medications Medication SIG (Take, Route, Frequency, Duration) Notes Start Date End Date Status Vitamin D3 50 MCG (1999 UT) 1 tab(s) orally once a day 11/05/2013 Active Hyoscyamine Sulfate 0.125 MG 1 tablet on the tongue and allow to dissolve as needed orally three times a day as needed; Duration: 30 days Active PreserVision AREDS 2 [...] a day; Duration: 30 days 03/13/2025 Not-Taking Immunizations Vaccine Route Administration Date Status Comme nts COVID 19 Moderna Unknown 12/09/2020 Administered COVID 19 Moderna IM Intramuscular 01/06/2021 Administered COVID 19 Moderna Unknown 09/29/2021 Administered Fluzone High Dose (65yr and older) IM Intramuscular 12/07/2021 Administered Pt tolerated w ell Fluzone High Dose (65yr and older) IM Intramuscular 07/27/2023 Administered Fluzone High Dose (65yr and older) IM Intramuscular 08/02/2024 Administered Fluzone PF Quad (6-35 months) Unknown 09/15/2022 Administered Fluzone Quad (6months&older) IM Intramuscular 11/04/2019 Administered Fluzone Quad (6months&older) IM Intramuscular 08/04/2020 Administered Prevnar (PCV20) IM Intramuscular 04/17/2025 Pending Tetanus Tdap-Adacel (over 7yrs) IM Intramuscular 03/25/2019 Administered Problems Problem Type SNOMED Code ICD Code Onset Dates Problem Status W/U Status Risk Notes Problem Vitamin D deficiency (90997313) Vitamin D deficiency NOS (268.9) Active confirmed Problem Hypothyroidism (43326181) Hypothyroidism (acquired) (E03.9) Active confirmed Problem Essential hypertension (53403244) Essential hypertension (I10) Active confirmed Problem Osteopenia (640979846) Osteopenia (M85.80) Active confirmed Problem Fibrocystic breast changes (71780446) Diffuse cystic mastopathy of right breast (N60.11) Active confirmed Problem Nicotine dependence (85752743) Personal history of nicotine dependence (Z87.891) Active confirmed Problem History of cholecystectomy (605503134) History of cholecystectomy (Z90.49) Active confirmed Problem Abnormal weight (finding) (61655599) Weight disorder (R63.8) Active confirmed Problem Pure hypercholesterolemia (349722704) Pure hypercholesterolemia (E78.00) Active confirmed Problem Fibrocystic breast changes (74155653) Fibrocystic breast disease (FCBD), unspecified laterality (N60.19) Active confirmed Problem Acute suppurative otitis media without spontaneous rupture of ear drum (58392448) Non-recurrent acute suppurative otitis media of right ear without spontaneous rupture of tympanic membrane (H66.001) Active confirmed Vital Signs Heart Rate 69 /min 05/26/2025 Blood pressure diastolic 80 mm Hg 05/26/2025 Height 64 in 05/26/2025 Blood pressure systolic 120 mm Hg 05/26/2025 Weight 147.2 lbs 05/26/2025 BMI 25.26 kg/m2 05/26/2025 Encounters Encounter Location Date Provider Diagnosis [facility] [facility] [address] [id number] 06/04/2024 Chata Keita Stye external H00.019 [facility] 120[facility] [address], [place] [id number] 08/02/2024 Mookie Hernandez Pure hypercholestero lemia E78.00 ; Essential hypertension I10 ; BMI 23.0-23.9, adult Z68.23 ; Hypothyroidism (acquired) E03.9 ; Osteopenia M85.80 and Encounter for immunization Z23 [facility] 120[address] [facility] [address] [id number] 11/07/2024 Veronique Mcnulty Cervical strain S16. 1XXA [facility] 1209 [facility] [address] [place], [place] [id number] 12/02/2024 Mookie Hernandez Pure hypercholestero lemia E78.00 ; Osteopenia M85.80 and Essential hypertension I10 [facility] [address] [place] [facility] [address] [place], [place] [id number] 12/09/2024 Mookie Hernandez Essential hypertensi on I10 ; Pure hypercholesterolemia E78.00 and Hypothyroidism (acquired) E03.9 [facility] 1210 [facility] [address] [place], [place] [id number] 04/17/2025 Mookie Hernandez Essential hypertensi on I10 ; Osteopenia M85.80 ; Pure hypercholesterolemia E78.00 ; Encounter for immunization Z23 ; Weight disorder R63.8 and BMI 25.0-25.9,adult Z68.25 [facility] [address] [place], [place] [id number] 05/26/2025 J Ferny Hernandez Lipoma of torso D17. 1 and Urinary incontinence, mixed N39.46 [facility] [address] [place], [place] [id number] 05/30/2024 J Ferny Hernandez [facility] [address] [place], [place] [id number] 07/02/2024 J Ferny Hernandez [facility] [address] [place], [place] [id number] 07/03/2024 Elida Ara [facility] [address] [place] [id number] 08/05/2024 J Ferny Hernandez [facility] [address] [place], [place] [id number] 09/12/2024 J Ferny Hernandez [facility] [address] [place], [place] [id number] 09/25/2024 Mookie Hernandez Pure hypercholestero lemia E78.00 [facility] [address] [place], [place] [id number] 09/25/2024 J Ferny Hernandez [facility] [address] [place] [id number] 10/04/2024 J Ferny Hernandez [facility] [address] [place], [place] [id number] 10/04/2024 J Ferny Hernandez [facility] [address] [place], [place] [id number] 11/01/2024 J Ferny Hernandez [facility] [address] [place], [place] [id number] 11/07/2024 J Ferny Hernandez [facility] [address] [place], [place] [id number] 11/15/2024 Mookie Hernandez Hypothyroidism (acqu ired) E03.9 [facility] [address] [place], [place] [id number] 02/03/2025 Mookie Hernandez [facility] [address] [place] [id number] 02/11/2025 Mookie Hernandez [facility] [address] [place], [place] [id number] 03/12/2025 Mookie Hernandez [facility] [address] [place], [place] [id number] 04/04/2025 Mookie Hernandez [facility] [address] [place], [place] [id number] 04/04/2025 Mookie Hernandez Assessments Encounter Date Diagnosis (ICD Code) Assessment Notes Treatment Notes Treatment Clinical Notes Section Notes 06/04/2024 Stye external (ICD-1 0 - H00.019) discussed application of ointment; will not wear makeup until resolved and discard present eye makeup 08/02/2024 Essential hypertensi on (ICD-10 - I10) 09/25/2024 Pure hypercholesterolemia (ICD-10 - E78.00) 11/07/2024 Cervical strain (ICD -10 - S16.1XXA) Alternate heat and ice. Gentle stretching exercises 11/15/2024 Hypothyroidism (acquired) (ICD-10 - E03.9) 08/02/2024 Pure hypercholesterolemia (ICD-10 - E78.00) SHE CANNOT TOLERATE OTHER STATINS 12/02/2024 Osteopenia (ICD-10 - M85.80) 12/02/2024 Pure hypercholesterolemia (ICD-10 - E78.00) NEEDS FASTING LIPIDS, CMP, TSH 04/17/2025 Essential hypertensi on (ICD-10 - I10) 04/17/2025 Osteopenia (ICD-10 - M85.80) 12/09/2024 Essential hypertensi on (ICD-10 - I10) 05/26/2025 Lipoma of torso (ICD -10 - D17.1) 05/26/2025 Urinary incontinence , mixed (ICD-10 - N39.46) 12/09/2024 Pure hypercholesterolemia (ICD-10 - E78.00) 04/17/2025 Pure hypercholesterolemia (ICD-10 - E78.00) 08/02/2024 BMI 23.0-23.9, adult (ICD-10 - Z68.23) 12/02/2024 Essential hypertensi on (ICD-10 - I10) 12/09/2024 Hypothyroidism (acquired) (ICD-10 - E03.9) 08/02/2024 Hypothyroidism (acquired) (ICD-10 - E03.9) 04/17/2025 Encounter for immunization (ICD-10 - Z23) 04/17/2025 Weight disorder (ICD -10 - R63.8) 08/02/2024 Osteopenia (ICD-10 - M85.80) 08/02/2024 Encounter for immunization (ICD-10 - Z23) 04/17/2025 BMI 25.0-25.9,adult (ICD-10 - Z68.25) Plan Of Treatment Pending Test Test Name Order Date DEXA Hip and Spine 04/17/2025 US: left axilla 05/26/2025 Next Appt Details Provider Name:Mookie Kramer er, 07/17/2025 01:45:00 PM, [address] [facility], [address], [place], [place], [id number], Insurance Providers Payer Name Payer Address Payer Phone Subscriber Number Group Number Insured Name Patient Relationship to Insured Coverage Start Date Coverage End Date [employer] (MEDICAR E) [address] [address] [place] [address] [id number] Cara Billy Self - patient is the insured Medications Administered Medication Instructions Date of Administration Dosage Notes TORADOL INJECTION 09/06/2019 1 mL Medical (General) History Medical History History ICD Code 2018 flu shot at 3M Surgical History Surgery Date(Month/Year) cholecystectomy 1977? upper lip due to dog bite elbow fracture 02/2014 cataracts OU -2022 Hospitalization History Reason Date(Month/Year) [facility] ER- flank pain, colic 09/06/19
--- OUTSIDE RECORDS SUMMARY | 2025-05-28 13:41 | XMS_ITS ---
Author Organization Unknown Medications Date Medication Dosage DosageUnit StartDate StopDate StopReason Active DoseQuantity DoseUnit Dispense DispenseUnit Refills NdcCode DrugCode PharmacyId IsPrescription MappedMedication Srcstatus 03/12 00:00 :00 Lisinopril 5 MG Tablet 1 30 Tablet 2 00 578977 601 P Unknown Status 03/12 00:00 :00 Myrbetriq 50 MG Tablet Extended Release 24 Hour 02/12/2025 00:00:00 0 1175031 0 207 P Stop 03/12 00:00 :00 oxyBUTYnin Chloride 5 MG Tablet 03/13/2025 00:00:00 1 60 Tablet 2 00081 003 800 P Start 04/04 00:00 :00 Pitavastati n Calcium 2 mg Tablet 1 30 Tablet 2 13172274 677 P Unknown Status 03/24 00:00 :00 Pitavastati n Calcium 2 mg Tablet 1 30 Tablet 2 01948525 677 Start 03/24 00:00 :00 Pitavastati n Calcium 2 MG Tablet 0 30 5 003 48034 677 Stop
--- NOTE | 2025-05-28 13:43 | US_ITS ---
FINAL REPORT CLINICAL HISTORY: L AXILLA LIPOMA FINDINGS: Limited sonographic images were obtained of the soft tissues in the left axillary region at the area of reported palpable abnormality. There is a lymph node measuring up to 3.2 cm with preserved fatty sadie. No definite mass identified. IMPRESSION: Enlarged left axillary lymph node with preserved fatty sadie. Correlate clinically. Reviewed, Interpreted and Dictated by uKsh Reina MD Transcribed by Mariam El Authenticated and [facility]
== END 2025-05-28 23:59 | disposition home or self-care (01) ==
LOC: RAD 13:38
PROVIDERS: PCP Family Medicine; Visit Provider Family Medicine
DX: R59.0 Localized enlarged lymph nodes (principal); R93.89 Abnormal findings on diagnostic imaging of other specified body structures; D17.1 Benign lipomatous neoplasm of skin and subcutaneous tissue of trunk
CPT/HCPCS: 76642

== ENCOUNTER 2025-06-03 08:41 | Outpatient (CLI) | payer MEDICARE, SELFPAY ==
--- OUTSIDE RECORDS SUMMARY | 2024-12-09 04:15 | XMS_ITS ---
Author Organization [facility] Address [address]10 [facility] 36 [facility] [address] [place] [phone] Care Team Providers Care Safety And Health Manager Name Role Phone Mookie Hernandez Primary Care Provider RAOUL MCLAUGHLIN Unavailable Unavailable Results Component Value Reference Range Notes P-Comprehensive Metabolic Pa twila (CMP) Reviewed date:12/12/2024 12:41:50 PM Interpretation:Normal Performing Lab: Notes/Report: Test performed by [facility], [address] , [address], [place] [address] Heber Morris MD, Prompt Care Rn CLIA: [id number] Sodium 143 135-145 mmol/L Potassium 4.5 3.5-5.3 [...] Interpretation:satisfactory Performing Lab: Notes/Report: Test performed by [facility], [address] , [address], [place] [address] Heber Morris MD, Prompt Care Rn CLIA: [id number] Cholesterol 198 <200 mg/dL Triglycerides 130 <150 [...] Interpretation:Normal Performing Lab: Notes/Report: Test performed by [facility] [address] , [address], [place] [address] Heber Morris MD, Prompt Care Rn CLIA: [id number] TSH 2.43 0.43-5.25 mU/L REASON FOR VISIT blood work Encounters Encounter Location Date Provider Diagnosis [facility] [address] [facility] [address] [place] [id number] 12/09/2024 Mookie Hernandez Essential hypertensi on I10 [...] [address], [address], [place], [phone], Progress Notes * Antonio SERRANO: 6 (69 yo F)Acc No.[id number]:12/09/2024 Patient: Omar MCWILLIAMSCara Provider: Mookie Hernandez M.D. :1955 A ge:69 Y S ex:Female Date:12/09/2024 Address:[address] [place] [address] [id number] Subjective: * Chief Complaints: [...] Electronic signature of Mookie Hernandez MD on 06/03/2025 at 08:44 AM EDT Sign off status: Pending * Provider: Mookie Hernandez M.D. Date: 0 12/09/2024 Generated for Racquel lei/Yaima/Isaelitting on: 0 06/03/2025 08:44 AM EDT
--- OUTSIDE RECORDS SUMMARY | 2025-04-17 09:30 | XMS_ITS ---
Author Organization [facility] Address 1210 [facility] [address] [place] [phone] Care Team Providers Care Cork Slabs Sawyer Name Role Phone Mookie Hernandez Primary Care Provider [phone] RAOUL MCLAUGHLIN Unavailable Unavailable Allergies No Known [...] [address] [place] [phone] 04/17/2025 Mookie Hernandez Essential hypertensi on I10 [...] [address], [address], [place], [phone], Progress Notes * Antonio SERRANO: 6 (69 yo F)Acc No.[id number]:04/17/2025 Progress Notes Patient: Cara LOAIZA Provider: Mookie Hernandez M.D. :1955 A ge:69 Y S ex:Female Date:04/17/2025 Address:[address] [place] [address] [id number] Subjective: * Chief Complaints: * 1 . [...] . . Brother with history of CAD, [place]. * Social History: C URRENT TOBACCO USE [...] eight disorder - R63.8 6 . B [place] 25.0-25.9,adult - Z68.25 Plan: * Treatment: 2.?Weight [...] * Images: Billing Information: * Visit Code: 03827 Office Visit, Est Pt., Level 4. * [...] 04/17/2025 Generated for Racquel lei/Yaima/eTransmitting on: 0 06/03/2025 08:44 AM EDT History and Physical Notes * [...]
--- OUTSIDE RECORDS SUMMARY | 2025-05-26 10:00 | XMS_ITS ---
[facility] [address] [facility] [address] [place] [id number] Care Team Providers Care Mobile Ui/Ux Designer Name Role Phone Mookie Hernandez Primary Care Provider RAOUL MCLAUGHLIN Unavailable Unavailable Allergies No Known Allergies Results Component Value Reference Range Notes US: left axilla (Not yet rev iewed by provider) Interpretation:enlarged lymph node Performing Lab: Notes/Report: enlarged lymph node REASON FOR VISIT lump under arm Medications [...] 05/26/2025 Encounters Encounter Location Date Provider Diagnosis [facility] [address] [place] [address] [facility] [address] [place] [id number] 05/26/2025 Mookie Hernandez Lipoma of torso D17. 1 ; Urinary incontinence, mixed N39.46 and BMI 25.0-25.9,adult Z68.25 Assessments Encounter Date Diagnosis (ICD Code) Assessment Notes Treatment Notes Treatment Clinical Notes Section Notes 05/26/2025 Lipoma of torso (ICD-10 - D17.1) 05/26/2025 Urinary incontinence, mixed (ICD-10 - N39.46) 05/26/2025 BMI 25.0-25.9,adult (ICD-10 - Z68.25) Plan Of Treatment Medication Medication Name Sig Start Date Stop Date Notes Myrbetriq 50 MG 1 tablet Orally Once a day; Duration: 30 days Pending Test Test Name Order Date US: left axilla 05/26/2025 Next Appt Details Follow Up: as scheduled, [place] son: Provider Name:Mookie Kramer er, 07/17/2025 01:45:00 PM, [address] [place] [facility] 36 [facility], [address], [place], [id number], Progress Notes * Antonio SERRANO: (69 yo F)Acc No.[id number]:05/26/2025 Progress Notes Patient: Cara LOAIZA Provider: Mookie Hernandez M.D. :1955 A ge:69 Y S ex:Female Date:05/26/2025 Address:[address] [place] [address] [facility] , [place], [id number] Subjective: * Chief Complaints: * 1 . [...] . . Brother with history of CAD, [place]. * Social History: C URRENT TOBACCO USE [...] . U rinary incontinence, mixed - N39.46 3 . B [place] 25.0-25.9,adult - Z68.25 Plan: * Treatment: 2.?Urinary incontinence, mixed? Refill Myrbetriq Tablet Extended Release 24 Hour, 50 MG, 1 tablet, Orally, Once a day, 30 days, 30 Tablet, Refills 5.?? * Procedure Codes: G 2211 Complex e/m visit add on, G8420 BMI<30 AND >=22 CALC & DOCU, 1036F TOBACCO NON-USER, G8783 BP SCR PRFRM RCMDD DEFIND SCR INTVL, G8752 MOST RECENT SYSTOLIC BP < 140MM HG, G8754 MOST RECENT DIASTOLIC BP < 90MM HG * Follow Up: a s scheduled * Images: Billing Information: * Visit Code: 86342 Office Visit, Est Pt., Level 3. * Procedure Codes: G2211 Complex e/m visit add on. G8420 BMI<30 AND >=22 CALC & DOCU. 1036F TOBACCO NON-USER. G8783 BP SCR PRFRM RCMDD DEFIND SCR INTVL. G8752 MOST RECENT SYSTOLIC BP < 140MM HG. G8754 MOST RECENT DIASTOLIC BP < 90MM HG. * Electronic signature of Mookie Hernandez MD on 06/03/2025 at 08:43 AM EDT Sign off status: Pending * Provider: Mookie Hernandez M.D. Date: 05/26/2025 Generated for Racquel lei/Yaima/Isaelitting on: 0 06/03/2025 08:43 AM EDT History and Physical Notes * Examination Category Sub-Category Detail Notes Category Not es General Examination Extremities: 3 cm left ax illary lesion that has the consistancy of a lipoma General Appearance: NAD, appears healthy , pleasant, Color good
--- NOTE | 2025-06-03 08:43 | XR_ITS ---
FINAL REPORT TECHNIQUE: Bone densitometry calculations of the lumbar spine and left hip were obtained. CLINICAL HISTORY: SCREENING FINDINGS: Using L1-4, the bone mineral density of the spine is 1.052 g/cm2, corresponding to T-score of 0.0. Using the left hip, the bone mineral density of the femoral neck is 0.561 g/cm2, corresponding to a T-score of -2.6. Using the right hip, the bone mineral density of the femoral neck is 0.593 g/cm2, corresponding to a T-score of -2.3. NOTE: T-score: Standard deviation compared with peak bone mass of young adult mean. *Following the recommendations of the International Society of Bone densitometry, classification of hip BMD is based on the lower of two T-scores; total hip or femoral neck. IMPRESSION: Normal bone mineral density of the lumbar spine. Diminished bone mineral density of the right hip consistent with osteopenia. Diminished bone mineral density of the left hip consistent with osteoporosis. FRAX was not reported because patient is being treated for osteoporosis. Reviewed, Interpreted and Dictated by Lis Segal MD Transcribed by Agnieszka Bruce Authenticated and [facility]
--- OUTSIDE RECORDS SUMMARY | 2025-06-03 08:44 | XMS_ITS | Patient Health Record ---
Author Organization [facility] Address 12[address] [facility] 36 [facility] [address] [place] [id number] Care Team Providers Care Customer Service Receptionist Name Role Phone Mookie Hernandez Primary Care Provider [phone] RAOUL MCLAUGHLIN Unavailable Unavailable Veronique Mcnulty Unavailable [phone] Chata Keita Unavailable [phone] Elida Bullock Unavailable [phone] Allergies No Known Allergies Results Component Value Reference Range Notes US: left axilla (Not yet rev iewed by provider) Interpretation:enlarged lymph node Performing Lab: Notes/Report: enlarged lymph node Mammogram Reviewed date:07/31/2024 02:12:06 PM Interpretation:Negative, annual f/u Performing Lab: Notes/Report: Negative, annual f/u result Negative, annual f/u P-Comprehensive Metabolic Pa twila (CMP) Reviewed date:08/05/2024 10:21:37 AM Interpretation:Normal Performing Lab: Notes/Report: CLIA: [id number] Heber Morris MD, Server Programmer [facility] , [address], [place] [address] Test performed by [employer], [facility] Sodium 142 135-145 mmol/L Potassium 4.7 3.5-5.3 [...] 160 Performing Lab: Notes/Report: Test performed by [employer], [address] , [address], [place] [address] Heber Morris MD, Server Programmer CLIA: [id number] Cholesterol 252 <200 mg/dL Triglycerides 166 <150 [...] Interpretation:Normal Performing Lab: Notes/Report: Test performed by [facility] [address] [place], [place] [address] , [address] , [place] [address] Heber Morris MD, Server Programmer CLIA: [id number] TSH 2.19 0.43-5.25 mU/L P-Comprehensive Metabolic Pa twila ([facility]) Reviewed date:12/12/2024 12:41:50 PM Interpretation:Normal Performing Lab: Notes/Report: Test performed by [facility] [address] [place], [place] [address] , [address], [place] [address] Heber Morris MD, Server Programmer CLIA: [id number] Sodium 143 135-145 mmol/L Potassium 4.5 3.5-5.3 [...] Interpretation:satisfactory Performing Lab: Notes/Report: Test performed by [employer], [address] , [place] [address] Heber Morris MD, Server Programmer CLIA: [id number] Cholesterol 198 <200 mg/dL Triglycerides 130 <150 [...] Interpretation:Normal Performing Lab: Notes/Report: Test performed by [employer], [address] , [facility], [place] [address] Heber Morris MD, Server Programmer CLIA: [id number] TSH 2.43 0.43-5.25 mU/L Medications Medication SIG (Take, Route, Frequency, Duration) Notes Start Date End Date Status Vitamin D3 50 MCG (1999 UT) 1 tab(s) orally once a day 11/05/2013 Active Lisinopril 5 MG 1 tab(s) orally once a day; Duration: 30 days Active Hyoscyamine Sulfate 0.125 MG 1 tablet [...] Once a day; Duration: 30 days Active oxyBUTYnin [...] Status Risk Notes Problem Vitamin D deficiency (43789722) Vitamin D deficiency NOS (268.9) Active confirmed Problem Hypothyroidism (79288648) Hypothyroidism (acquired) (E03.9) Active confirmed Problem Essential hypertension (41482866) Essential hypertension (I10) Active confirmed Problem Osteopenia (627837254) Osteopenia (M85.80) Active confirmed Problem Fibrocystic breast changes (43075827) Diffuse cystic mastopathy of right breast (N60.11) Active confirmed Problem Nicotine dependence (66106777) Personal history of nicotine dependence (Z87.891) Active confirmed Problem History of cholecystectomy (448658477) History of cholecystectomy (Z90.49) Active confirmed Problem Abnormal weight (finding) (39883063) Weight disorder (R63.8) Active confirmed Problem Pure hypercholesterolemia (968856140) Pure hypercholesterolemia (E78.00) Active confirmed Problem Fibrocystic breast changes (31218821) Fibrocystic breast disease (FCBD), unspecified laterality (N60.19) Active confirmed Problem Acute suppurative otitis media without spontaneous rupture of ear drum (53831879) Non-recurrent acute suppurative otitis media of right ear without spontaneous rupture of tympanic membrane (H66.001) Active confirmed Vital Signs Heart Rate 69 /min 05/26/2025 Blood pressure diastolic 80 mm Hg 05/26/2025 Height 64 in 05/26/2025 Blood pressure systolic 120 mm Hg 05/26/2025 Weight 147.2 lbs 05/26/2025 BMI 25.26 kg/m2 05/26/2025 Encounters Encounter Location Date Provider Diagnosis [facility] [address] [place], [place] [id number] 06/04/2024 Chata Keita Stye external H00.019 [facility] [address] [place], [place] [id number] 08/02/2024 Mookie Hernandez Pure hypercholestero lemia E78.00 ; Essential hypertension I10 ; BMI 23.0-23.9, adult Z68.23 ; Hypothyroidism (acquired) E03.9 ; Osteopenia M85.80 and Encounter for immunization Z23 [facility] [facility] y [address] [place], [place] [id number] 11/07/2024 Veronique Mcnulty Cervical strain S16. 1XXA [facility] 1210 [facility] [address] [place], [place] [id number] 12/02/2024 Mookie Hernandez Pure hypercholestero lemia E78.00 ; Osteopenia M85.80 and Essential hypertension I10 [facility] [address] [place] [address] [place] [id number] 12/09/2024 Mookie Hernandez Essential hypertensi on I10 ; Pure hypercholesterolemia E78.00 and Hypothyroidism (acquired) E03.9 [facility] [address] [place], [place] [id number] 04/17/2025 Mookie Hernandez Essential hypertensi on I10 ; Osteopenia M85.80 ; Pure hypercholesterolemia E78.00 ; Encounter for immunization Z23 ; Weight disorder R63.8 and BMI 25.0-25.9,adult Z68.25 [facility] [address] [place], [place] [id number] 05/26/2025 J Ferny Hernandez Lipoma of torso D17. 1 ; Urinary incontinence, mixed N39.46 and BMI 25.0-25.9,adult Z68.25 [facility] [address] [place], [place] [id number] 07/02/2024 Mookie Hernandez [facility] [address] [place], [place] [id number] 07/03/2024 Elida Bullock [facility] [address] [place], [place] [id number] 08/05/2024 J Ferny Hernandez [facility] [address] [place], [place] [id number] 09/12/2024 J Ferny Hernandez [facility] [address] [place], [place] [id number] 09/25/2024 Mookie Hernandez Pure hypercholestero lemia E78.00 [facility] [address] [place], [place] [id number] 09/25/2024 J Ferny Hernandez [facility] [address] [place], [place] [id number] 10/04/2024 J Ferny Hernandez [facility] [address] [place], [place] [id number] 10/04/2024 J Ferny Hernandez [facility] [address] [place], [place] [id number] 11/01/2024 Mookie Hernandez [facility] [address] [place] [id number] 11/07/2024 Mookie Hernandez [facility] [address] [place], [place] [id number] 11/15/2024 Mookie Hernandez Hypothyroidism (acqu ired) E03.9 [facility] [address] [place], [place] [id number] 02/03/2025 Mookie Hernandez [facility] [address] [place], [place] [id number] 02/11/2025 Mookie Hernandez [facility] [address] [place] [id number] 03/12/2025 Mookie Hernandez [facility] [address] [place], [place] [id number] 04/04/2025 Mookie Hernandez [facility] [address] [place], [place] [id number] 04/04/2025 Mookie Hernandez Assessments Encounter Date Diagnosis [...] E78.00) 04/17/2025 Pure hypercholesterolemia (ICD-10 - E78.00) 05/26/2025 BMI 25.0-25.9,adult (ICD-10 - Z68.25) 08/02/2024 BMI 23.0-23.9, adult (ICD-10 - Z68.23) [...] axilla 05/26/2025 Next Appt Details Provider Name:Mookie Isaacs Williams er, 07/17/2025 01:45:00 PM, [address] [facility] 36 [facility], [address], [place], [place], [id number], Insurance Providers Payer Name Payer Address Payer Phone Subscriber Number Group Number Insured Name Patient Relationship to Insured Coverage Start Date Coverage End Date [employer] (MEDICAR E) [address] [address] [place] [address] [id number] Cara Billy Self - patient is the insured Medications Administered Medication Instructions Date of Administration Dosage Notes TORADOL INJECTION 09/06/2019 1 mL Medical (General) History Medical History History ICD Code 2018 flu shot at 3M Surgical History Surgery Date(Month/Year) cholecystectomy 1977? upper lip due to dog bite elbow fracture 02/2014 cataracts OU -2022 Hospitalization History Reason Date(Month/Year) [facility] ER- flank pain, colic 09/06/19
--- OUTSIDE RECORDS SUMMARY | 2025-06-03 08:44 | XMS_ITS ---
Author Organization Unknown Medications Medication Instructions Effective Dates (start - stop) Status lisinopril 5 MG Oral Tablet 2021T:00:00.000+00:00 - Completed pitavastatin calcium 4 MG Or al Tablet [Livalo] [id number]:00:00.000+00:0 0 - Completed lisinopril 5 MG Oral Tablet 2021:00:00.000+00:00 - Completed pitavastatin calcium 2 MG Or al Tablet [Livalo] [id number]:00:00.000+00:0 0 - Completed lisinopril 5 MG Oral Tablet 2022:00:00.000+00:00 - Completed lisinopril 5 MG Oral Tablet 2021:00:00.000+00:00 - Completed lisinopril 5 MG Oral Tablet 2021:00:00.000+00:00 - Completed lisinopril 5 MG Oral Tablet 2022:00:00.000+00:00 - Completed lisinopril 5 MG Oral Tablet 2022:00:00.000+00:00 - Completed levofloxacin 750 MG Oral Tablet [id number]:00:00.000+00:00 - Completed erythromycin 0.005 MG/MG Ophthalmic Ointment [id number]:00:00.000+00:0 0 - Completed lisinopril 5 MG Oral Tablet 2022:00:00.000+00:00 - Completed lisinopril 5 MG Oral Tablet 2022:00:00.000+00:00 - Completed lisinopril 5 MG Oral Tablet 2021:00:00.000+00:00 - Completed lisinopril 5 MG Oral Tablet 2021:00:00.000+00:00 - Completed pitavastatin calcium 2 MG Or al Tablet [Livalo] [id number]:00:00.000+00:0 0 - Completed lisinopril 5 MG Oral Tablet 2022:00:00.000+00:00 - Completed ciprofloxacin 500 MG Oral Tablet [id number]:00:00.000+00:00 - Completed {4 (risedronate sodium 35 MG Oral Tablet) } Pack [id number]:00:00.000+00:0 0 - Completed {4 (risedronate sodium 35 MG Oral Tablet) } Pack [id number]:00:00.000+00:0 0 - Completed hyoscyamine sulfate 0.125 MG Sublingual Tablet [id number]:00:00.000+00:0 0 - Completed hyoscyamine sulfate 0.125 MG Sublingual Tablet [id number]:00:00.000+00:0 0 - Completed hyoscyamine sulfate 0.125 MG Sublingual Tablet [id number]:00:00.000+00:0 0 - Completed {4 (risedronate sodium 35 MG Oral Tablet) } Pack [id number]:00:00.000+00:0 0 - Completed hyoscyamine sulfate 0.125 MG Sublingual Tablet [id number]:00:00.000+00:0 0 - Completed hyoscyamine sulfate 0.125 MG Sublingual Tablet [id number]:00:00.000+00:0 0 - Completed {4 (risedronate sodium 35 MG Oral Tablet) } Pack [id number]:00:00.000+00:0 0 - Completed hyoscyamine sulfate 0.125 MG Sublingual Tablet [id number]:00:00.000+00:0 0 - Completed {4 (risedronate sodium 35 MG Oral Tablet) } Pack [id number]:00:00.000+00:0 0 - Completed {4 (risedronate sodium 35 MG Oral Tablet) } Pack [id number]:00:00.000+00:0 0 - Completed {4 (risedronate sodium 35 MG Oral Tablet) } Pack [id number]:00:00.000+00:0 0 - Completed {4 (risedronate sodium 35 MG Oral Tablet) } Pack [id number]:00:00.000+00:0 0 - Completed ciprofloxacin 500 MG Oral Tablet [id number]:00:00.000+00:00 - Completed hyoscyamine sulfate 0.125 MG Sublingual Tablet [id number]:00:00.000+00:0 0 - Completed {4 (risedronate sodium 35 MG Oral Tablet) } Pack [id number]:00:00.000+00:0 0 - Completed - [id number]:00 :00.000+00:00 - Completed {4 (risedronate sodium 35 MG Oral Tablet) } Pack [id number]:00:00.000+00:0 0 - Completed {4 (risedronate sodium 35 MG Oral Tablet) } Pack [id number]:00:00.000+00:0 0 - Completed {4 (risedronate sodium 35 MG Oral Tablet) } Pack [id number]:00:00.000+00:0 0 - Completed 12 HR bupropion hydrochlorid e 90 MG / naltrexone hydrochloride 8 MG Extended Release Oral Tablet [Contrave] [id number]:00:00.000+00:0 0 - Completed 12 HR bupropion hydrochlorid e 90 MG / naltrexone hydrochloride 8 MG Extended Release Oral Tablet [Contrave] [id number]:00:00.000+00:0 0 - Completed Patient Care team information Name Category Status Period Participants - - Proposed period not known -
== END 2025-06-03 23:59 | disposition home or self-care (01) ==
LOC: RAD 08:41
PROVIDERS: PCP Family Medicine; Visit Provider Family Medicine
DX: M85.851 Other specified disorders of bone density and structure, right thigh (principal); M81.0 Age-related osteoporosis without current pathological fracture
CPT/HCPCS: 77080

== ENCOUNTER 2025-07-28 08:59 | Outpatient (CLI) | payer MEDICARE, SELFPAY ==
--- OUTSIDE RECORDS SUMMARY | 2024-12-02 06:30 | XMS_ITS ---
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 Name Role Phone Mookie Hernandez Primary Care Provider [phone] RAOUL MCLAUGHLIN Unavailable Unavailable Allergies No Known Allergies REASON FOR VISIT 4 [facility] Medications Medication SIG (Take, Route, Frequency, Duration) Notes Start Date End Date Status Levothyroxine Sodium 25 MCG 1 tablet in the morning on an empty stomach Orally Once a day; Duration: 30 days Active Lisinopril 5 MG 1 tab(s) orally once a day; Duration: 30 days Active Hyoscyamine Sulfate 0.125 MG 1 tab(s) or ally three times a day as needed; Duration: 30 day(s) Active Pitavastatin Calcium 2 MG 1 tablet Orall y At Bed Time; Duration: 30 days Active Citracal Slow Release 600-40-500 MG-MG-UNIT 2 tab(s) orally once a day (in the morning); Duration: 30 day(s) 11/09/2016 Active PreserVision AREDS 2 - as directed Orally Active Risedronate Sodium 35 MG 1 tab(s) orally once a week; Duration: 30 day(s) Active Vitamin D3 50 MCG (1999) 1 tab(s) ora lly once a day 11/05/2013 Active Co-Enzyme Q10 200 MG as directed Orally 11/27/2023 Active Vital Signs Blood pressure systolic 120 mm Hg 12/02/19 25 Blood pressure diastolic 80 mm Hg 025 Heart Rate 60 /min 12/02/2024 Height 64 in 12/02/2024 Weight 140.6 lbs 12/02/2024 BMI 24.13 kg/m2 12/02/2024 Encounters Encounter Location Date Provider Diagnosis [facility] [address] [facility] [address] [facility] [address] [place], [place] [id number] 12/02/2024 Mookie Hernandez Pure hypercholestero lemia E78.00 ; Osteopenia M85.80 and Essential hypertension I10 Assessments Encounter Date Diagnosis (ICD Code) Assessment Notes Treatment Notes Treatment Clinical Notes Section Notes 12/02/2024 Pure hypercholesterolemia (ICD-10 - E78.00) NEEDS FASTING LIPIDS, CMP, TSH 12/02/2024 Osteopenia (ICD-10 - M85.80) 12/02/2024 Essential hypertensi on (ICD-10 - I10) Plan Of Treatment Treatment Notes Assessment Notes Pure hypercholesterolemia NEEDS FASTING LIPIDS, CMP, TSH Next Appt Details Follow Up: 4 Months, Reason: Provider Name:Mookie Kramer er, 11/17/2025 09:45:00 AM, [address] [facility] [address] [facility] [address], [address], [place], [place], [id number], Progress Notes * Celso SERRANOaDOB: (69 yo F)Acc No.[id number]:12/02/2024 Progress Notes Patient: Cara LOAIZA Provider: Mookie Hernandez M.D. :1955 A ge:69 Y S ex:Female Date:12/02/2024 Address:[address] [place] [address] , [place], [id number] Subjective: * Chief Complaints: * 1 . 4 mths. * HPI: C ardiology: The patient is here for a check up on Hypertension, Hyperlipidemia and Hypothyroidism. Pt states she is doing good and denies any new concerns. Pt states she is not fasting. Denies : Chest Pain. D enies : Short of Breath. D enies : Dizziness. D enies : Palpitations. * ROS: D ERMATOLOGY: no R derrick. n o H avelino. G ASTROENTEROLOGY: no N ausea. n o V omiting. n o D iarrhea.? U ROLOGY: no D ifficulty urinating. n o B lood in urine. * Medical History: 2 018 flu shot at 4M. * Surgical History: c holecystectomy 1977?, upper lip due to dog bite , elbow fracture 02/2014, cataracts OU 2022. * Hospitalization/Major Diagno stic Procedure: H ER- flank pain, colic 09/06/19. * Family History: F ather: alive, Alzheimers. M other: alive. S iblings: sisters with hyperlipidemia.?1 brother(s) , 2 sister(s) . 1 son(s) , 1 daughter(s) . . Brother with history of CAD, [place]. * Social History: C URRENT TOBACCO USE S moking Status: Patient does NOT smoke, Former Smoker: Yes, Quit smokin, Smoking pack year history: 1. C affeine: yes, frequency:coffee, pop and tea, qd. Home smoke detector use: no. Marital Status: . Alcohol: Yes, Type: , Frequency: ,Years: , Determination:rum and diet coke, 2-3 glasses QD. * Medications: T aking PreserVision AREDS 2 - Capsule as directed Orally , Taking Citracal Slow Release 600-40-500 MG-MG-UNIT Tablet Extended Release 24 Hour 2 tab(s) orally once a day (in the morning) , Taking Co-Enzyme Q10 200 MG Capsule as directed Orally , Taking Vitamin D3 50 MCG (2000 UT) Tablet 1 tab(s) orally once a day , Taking Risedronate Sodium 35 MG Tablet 1 tab(s) orally once a week , Taking Pitavastatin Calcium 2 MG Tablet 1 tablet Orally At Bed Time , Taking Hyoscyamine Sulfate 0.125 MG Tablet Disintegrating 1 tab(s) orally three times a day as needed , Taking Lisinopril 5 MG Tablet 1 tab(s) orally once a day , Taking Levothyroxine Sodium 25 MCG Tablet 1 tablet in the morning on an empty stomach Orally Once a day , Discontinued Contrave 8-90 MG Tablet Extended Release 12 Hour TAKE 2 TABLETS BY MOUTH TWICE A DAY , Medication List reviewed and reconciled with the patient * Allergies: N .K.D.A. Objective: * Vitals: W t:140.6, Temp:97.8, BP:120/80, HR:60, Nurse:RAKAN, Ht: 64, BMI:24.13. * Examination: G eneral Examination: General Appearance: N AD. H EENT: u nremarkable.?Oral cavity: n o lesions, mucosa moist and WNL, no erythema. N tommy: s upple, no lymphadenopathy. C hest: n ormal shape and expansion. H eart: R SR. L ungs: c lear to auscultation. A bdomen: soft and nontender, no organomegaly or masses. N eurologic Exam: I ntact, gait normal. S kin: n ormal, no rash. P eripheral pulses: n ormal. B ack: n ormal. E xtremities: n o leg edema. Assessment: * Assessment: 1. P ure hypercholesterolemia - E78.00 (Primary) 2 . O steopenia - M85.80? 3. E ssential hypertension - I10 Plan: * Treatment: * Follow Up: 4 Months * Images: Billing Information: * Visit Code: 29403 Office Visit, Est Pt., Level 4. * Procedure Codes: * Electronic signature of Mookie Hernandez MD on 07/28/2025 at 09:11 AM EDT Sign off status: Pending * Provider: Mookie Hernandez M.D. Date: 0 12/02/2024 Generated for Lilianai ng/Facatrachog/eTransmitting on: 0 07/28/2025 09:11 AM EDT History and Physical Notes * HPI (History of Present Illness) Category Sub-Category Detail Notes Category Not es Cardiology Short of Breath Chest Pain Palpitations Dizziness Examination Category Sub-Category Detail Notes Category Not es General Examination HEENT: unremarkable Heart: RSR Lungs: clear to auscultatio n Abdomen: soft and nontender, no organomegaly or masses Extremities: no leg edema General Appearance: NAD Skin: normal, no rash Neurologic Exam: Intact, gait normal Neck: supple, no lymphaden opathy Oral cavity: no lesions, mucosa m oist and WNL, no erythema Peripheral pulses: normal Back: normal Chest: normal shape and exp ansion
--- OUTSIDE RECORDS SUMMARY | 2024-12-09 04:15 | XMS_ITS ---
Author Organization [facility] Address [address] [facility] 36 [facility] [address] [place] [id number] Care Team Providers Care Fertilizer Applicator Name Role Phone Mookie Hernandez Primary Care Provider RAOUL MCLAUGHLIN Unavailable Unavailable Results Component Value Reference Range Notes P-Comprehensive Metabolic Pa twila (CMP) Reviewed date:12/12/2024 12:41:50 PM Interpretation:Normal Performing Lab: Notes/Report: Test performed by [facility], [address] , [address], [place] [address] Heber Morris MD, Director Financial Analysis CLIA: [id number] Sodium 143 135-145 mmol/L Potassium 4.5 3.5-5.3 mmol/L Chloride 105 97-108 mmol/L CO2 28 22-32 mmol/L Glucose 87 65-99 mg/dL BUN 8 8-23 mg/dL Creatinine 0.76 0.50-1.00 mg/dL Calcium 9.6 8.6-10.4 mg/dL eGFR by Creatinine 85 >59 mL/min/1.73m2 Protein 6.7 6.0-8.3 g/dL Albumin 4.5 3.5-5.3 g/dL Alkaline Phosphatase 53 35-121 IU/L ALT (SGPT) 13 <5-47 IU/L AST (SGOT) 16 <5-40 IU/L Bilirubin, Total 0.5 <0.2-1.2 mg/dL A/G Ratio 2.0 1.1-2.5 P-Lipid Panel Reviewed date:12/12/2024 12:41:50 PM Interpretation:satisfactory Performing Lab: Notes/Report: Test performed by [facility], [address] , [address], [place] [address] Heber Morris MD, Director Financial Analysis CLIA: [id number] Cholesterol 198 <200 mg/dL Triglycerides 130 <150 mg/dL HDL Cholesterol 58 >39 mg/dL Cholesterol / HDL Ratio 3.41 0.00-4.44 Ratio Non-HDL Cholesterol 140 <130 mg/dL LDL Cholesterol (Calculation) 114 <130 mg/dL LDL Cholesterol Levels* Less than 100 mg/dL Optimal 100 to 129 mg/dL Near Optimal/ Above Optimal 130 to 159 mg/dL Borderline High 160 to 189 mg/dL High 190 mg/dL and above Very High * Categories as recommended by the 2004 ATPIII guidelines LDL/HDL Ratio 2.0 <3.3 Ratio LDL Cholesterol Patient History Test Date: 01/29/2024 LDL Results: 114 Units: mg/dL % Change: -13% Test Date: 08/02/2024 LDL Results: 160 Units: mg/dL % Change: +40% Test Date: 12/09/2024 LDL Results: 114 Units: mg/dL % Change: -28% P-TSH Reviewed date:12/12/2024 12:41:50 PM Interpretation:Normal Performing Lab: Notes/Report: Test performed by [facility] [address] , [address], [place] [address] Heber Morris MD, Director Financial Analysis CLIA: [id number] TSH 2.43 0.43-5.25 mU/L REASON FOR VISIT blood work Encounters Encounter Location Date Provider Diagnosis [facility] [address] [facility] [address] [place] [id number] 12/09/2024 Mookie Hernandez Essential hypertensi on I10 ; Pure hypercholesterolemia E78.00 and Hypothyroidism (acquired) E03.9 Assessments Encounter Date Diagnosis (ICD Code) Assessment Notes Treatment Notes Treatment Clinical Notes Section Notes 12/09/2024 Essential hypertensi on (ICD-10 - I10) 12/09/2024 Pure hypercholesterolemia (ICD-10 - E78.00) 12/09/2024 Hypothyroidism (acquired) (ICD-10 - E03.9) Plan Of Treatment Next Appt Details Provider Name:Mookie Kramer er, 11/17/2025 09:45:00 AM, [address] [facility], [address], [place], [id number], Progress Notes * Antonio SERRANO: 6 (69 yo F)Acc No.[id number]:12/09/2024 Patient: Omar MCWILLIAMSCara Provider: Mookie Hernandez M.D. :1955 A ge:69 Y S ex:Female Date:12/09/2024 Address:[address] [place] [address] [id number] Subjective: * Chief Complaints: * 1 . Blood work. * Medical History: Objective: * Vitals: Assessment: * Assessment: 1. E ssential hypertension - I10 2 . P ure hypercholesterolemia - E78.00? 3. H ypothyroidism (acquired) - E03.9 Plan: * Treatment: Value Reference Range A /G Ratio 2.0 1.1-2.5 - * A lbumin 4.5 3.5-5.3 - g/dL * A lkaline Phosphatase 53 35-121 - IU/L * A LT (SGPT) 13 <5-47 - IU/L * A ST (SGOT) 16 <5-40 - IU/L * B ilirubin, Total 0.5 <0.2-1.2 - mg/dL * B UN 8 8-23 - mg/dL * C alcium 9.6 8.6-10.4 - mg/dL * C hloride 105 97-108 - mmol/L * C O2 28 22-32 - mmol/L * C reatinine 0.76 0.50-1.00 - mg/dL * G lucose 87 65-99 - mg/dL * P otassium 4.5 3.5-5.3 - mmol/L * S odium 143 135-145 - mmol/L * P rotein 6.7 6.0-8.3 - g/dL * e GFR by Creatinine 85 >59 - mL/min/1.73m2 * Stephanie Britton 12/12/2024 12: 41:19 PM >Patient informed of normal results. 2.?Pure hypercholesterolemia?LAB: P-Lipid Panel (Collection Date & Time - 12/09/2024 08:01 AM)? satisfactory* Value Reference Range C holesterol / HDL Ratio 3.41 0.00-4.44 - Ratio * C holesterol 198 <200 - mg/dL * H DL Cholesterol 58 >39 - mg/dL * L DL Cholesterol (Calculation) 114 <130 - mg/d L * L DL/HDL Ratio 2.0 <3.3 - Ratio * N on-HDL Cholesterol 140 H <130 - mg/dL * T riglycerides 130 <150 - mg/dL * Stephanie Britton 12/12/2024 12: 41:19 PM >Patient informed of normal results. 3.?Hypothyroidism (acquired)?LAB: P-TSH (Collection Date & Time - 12/09/2024 08:01 AM)?Normal* Value Reference Range T SH 2.43 0.43-5.25 - mU/L * Stephanie Britton 12/12/2024 12: 41:19 PM >Patient informed of normal results. * Images: Billing Information: * Visit Code: * Procedure Codes: * Electronic signature of Mookie Hernandez MD on 07/28/2025 at 09:12 AM EDT Sign off status: Pending * Provider: Mookie Hernandez M.D. Date: 0 12/09/2024 Generated for Racquel lei/Yaima/Isaelitting on: 0 07/28/2025 09:12 AM EDT
--- OUTSIDE RECORDS SUMMARY | 2025-05-26 10:00 | XMS_ITS ---
Author [facility] Address [address] [facility] [address] [place] [id number] Care Team Providers Care Child And Adolescent Psychologist Name Role Phone Mookie Hernandez Primary Care Provider RAOUL MCLAUGHLIN Unavailable Unavailable Allergies No Known Allergies Results Component Value Reference Range Notes US: left axilla Reviewed date:06/05/2025 01:13:11 PM Interpretation:enlarged lymph node Performing Lab: Notes/Report: enlarged [...] Duration: 30 day(s) 11/09/2016 Active Vital Signs Blood pressure systolic 120 mm Hg 05/26/20 25 Blood pressure diastolic 80 mm Hg 025 Heart Rate 69 /min 05/26/2025 Height 64 in 05/26/2025 Weight 147.2 lbs 05/26/2025 BMI 25.26 kg/m2 05/26/2025 Encounters Encounter Location Date Provider Diagnosis [facility] [address] [facility] 36 [facility] [address] [place], [place] [id number] 05/26/2025 Mookie Hernandez Lipoma of torso D17. [...] Orally Once a day; Duration: 30 days Next Appt Details Follow Up: as scheduled, [place] son: Provider Name:Mookie Kramer er, 11/17/2025 09:45:00 AM, [address] [facility] 36 [facility], [address], [place], [phone], Progress Notes * Antonio SERRANO: 6 (69 yo F)Acc No.[id number]:05/26/2025 Progress Notes Patient: Cara LOAIZA Provider: Mookie Hernandez M.D. :1955 A ge:69 Y S ex:Female Date:05/26/2025 Address:[address] [place] [address] , [place], [id number] Subjective: * Chief Complaints: * 1 . [...] . . Brother with history of CAD, [place]. * Social History: C URRENT TOBACCO USE [...] incontinence, mixed - N39.46 3 . B [place] 25.0-25.9,adult - Z68.25 Plan: * Treatment: 2.?Urinary [...] * Images: Billing Information: * Visit Code: 39035 Office Visit, Est Pt., Level 3. * Procedure Codes: G2211 Complex e/m visit add on. G8420 BMI<30 AND >=22 CALC & DOCU. 1036F TOBACCO NON-USER. G8783 BP SCR PRFRM RCMDD DEFIND SCR INTVL. G8752 MOST RECENT SYSTOLIC BP < 140MM HG. G8754 MOST RECENT DIASTOLIC BP < 90MM HG. * Electronic signature of Mookie Hernandez MD on 07/28/2025 at 09:10 AM EDT Sign off status: Pending * Provider: Mookie Hernandez M.D. Date: 0 05/26/2025 Generated for Racquel lei/Yaima/Isaelitting on: 0 07/28/2025 09:10 AM EDT History and Physical Notes * Examination Category Sub-Category Detail Notes Category Not es General Examination Extremities: 3 cm left ax illary lesion that has the consistancy of a lipoma General Appearance: NAD, appears healthy , pleasant, Color good
--- OUTSIDE RECORDS SUMMARY | 2025-07-17 09:45 | XMS_ITS ---
[facility] [address] [facility] [address] [place] [id number] Care Team Providers Care Skiver Machine Name Role Phone Mookie Hernandez Primary Care Provider RAOUL MCLAUGHLIN Unavailable Unavailable Allergies No Known Allergies REASON FOR VISIT 3 month f/u, Needs labs & mammogram Medications Medication SIG (Take, Route, Frequency, Duration) Notes Start Date End Date Status Lisinopril 5 MG 1 tab(s) orally once a day; Duration: 30 days Active oxyBUTYnin Chloride 5 MG 1 tablet Orally Twice a day; Duration: 30 days 03/13/2025 Not-Takin g Sulfacetamide Sodium 10 % 1 application into the lower eyelid of affected eye Ophthalmic Four times a day; Duration: 3 days 07/17/2025 Active Hyoscyamine Sulfate 0.125 MG 1 tablet on the tongue and allow to dissolve as needed orally three times a day as needed; Duration: 30 days Active Myrbetriq 50 MG 1 tablet Orally Once a day; Duration: 30 days Active Co-Enzyme Q10 200 MG as directed Orally 11/27/2023 Active Citracal Slow Release 600-40-500 MG-MG-UNIT 2 tab(s) orally once a day (in the morning); Duration: 30 day(s) 11/09/2016 Active Risedronate Sodium 35 mg TAKE ONE TABLET BY MOUTH ONCE WEEKLY; Duration: 28 Active Vitamin D3 50 MCG (2000 UT) 1 tab(s) orally once a day 11/05/2013 Active Levothyroxine Sodium 25 MCG 1 tablet in the morning on an empty stomach Orally Once a day; Duration: 30 days Active PreserVision AREDS 2 - as directed Orally Active buPROPion HCl ER (SR) 100 MG 1 tablet in the morning Orally Once a day; Duration: 30 day(s) 04/17/2025 Not-Taking Sulfacetamide Sodium 10 % 1 drop into af fected eye Ophthalmic Four times a day; Duration: 3 days 07/17/2025 Active Pitavastatin Calcium 4 MG 1 tab Orally b edtime; Duration: 30 days Active Vital Signs Blood pressure systolic 120 mm Hg 07/17/20 25 Blood pressure diastolic 76 mm Hg 025 Heart Rate 61 /min 07/17/2025 Height 64 in 07/17/2025 Weight 149.8 lbs 07/17/2025 BMI 25.71 kg/m2 07/17/2025 Encounters Encounter Location Date Provider Diagnosis [facility] [address], [place] [id number] 07/17/2025 Mookie Hernandez Pure hypercholestero lemia E78.00 ; Fibrocystic breast disease (FCBD), unspecified laterality N60.19 ; Essential hypertension I10 and Blepharitis of left lower eyelid, unspecified type H01.005 Assessments Encounter Date Diagnosis (ICD Code) Assessment Notes Treatment Notes Treatment Clinical Notes Section Notes 07/17/2025 Pure hypercholesterolemia (ICD-10 - E78.00) 07/17/2025 Fibrocystic breast disease (FCBD), unspecified laterality (ICD-10 - N60.19) 07/17/2025 Essential hypertensi on (ICD-10 - I10) 07/17/2025 Blepharitis of left lower eyelid, unspecified type (ICD-10 - H01.005) Plan Of Treatment Medication Medication Name Sig Start Date Stop Date Notes Sulfacetamide Sodium 10 % 1 application into the lower eyelid of affected eye Ophthalmic Four times a day; Duration: 3 days 07/17/2025 Sulfacetamide Sodium 10 % 1 drop into af fected eye Ophthalmic Four times a day; Duration: 3 days 07/17/2025 Pitavastatin Calcium 4 MG 1 tab Orally b edtime; Duration: 30 days Next Appt Details Follow Up: 4 Months, Reason: Provider Name:Mookie Kramer er, 11/17/2025 09:45:00 AM, [address], [address], [place], [place], [id number], Progress Notes * Yeni SERRANOB: 6 (69 yo F)Acc No.[id number]:07/17/2025 Progress Notes Patient: Cara LOAIZA Provider: Mookie Hernandez M.D. :1955 A ge:69 Y S ex:Female Date:07/17/2025 Address:[address] [place] [address] , [place], [id number] Subjective: * Chief Complaints: * 1 . 3 month f/u. 2. Needs labs & mammogram. * HPI: C ardiology: The pt is here for a check-up on Hypertension. Pt states she is doing good except for a some pain in the left eye. Pt thinks she may be getting another stye. Pt is not fasting. Denies : Chest [...] . . Brother with history of CAD, [place]. * Social History: C URRENT TOBACCO USE [...] times a day as needed , Taking Myrbetriq 50 MG Tablet Extended Release 24 Hour 1 tablet Orally Once a day , Taking Lisinopril 5 MG Tablet 1 tab(s) orally once a day , Taking Pitavastatin Calcium 2 mg Tablet TAKE 1 TABLET BY MOUTH ONCE A DAY , Not-Taking oxyBUTYnin Chloride 5 MG Tablet 1 tablet Orally Twice a day , Not-Taking buPROPion HCl ER (SR) 100 MG Tablet Extended Release 12 Hour 1 tablet in the morning Orally Once a day , Medication List reviewed and reconciled with the patient * Allergies: N .K.D.A. Objective: * Vitals: W t: 149.8, Temp: 97.7, BP: 120/76, HR: 61, Nurse: RAKAN, Ht: 64, BMI:25.71. * Examination: G eneral Examination: General Appearance: N AD. H EENT: s clera and conjunctiva clear, PERRLA, TM's normal, translucent. Mild irritation of the left lower eye lid, no pustule.. O ral cavity: n o lesions, mucosa moist and WNL, no erythema. N tommy: s upple, no lymphadenopathy. C hest: n ormal shape and expansion. H eart: R SR. L ungs: c lear to auscultation. A bdomen: soft and nontender, no organomegaly or masses.?Neurologic Exam: I ntact, gait normal. S kin: n ormal, no rash. To me, the axillary lesion seems to be a lipoma. See Dr. Parson's note.. P eripheral pulses: n ormal. B ack: n ormal. E xtremities: n o leg edema. Assessment: * Assessment: 1. P ure hypercholesterolemia - E78.00 (Primary) 2 . F ibrocystic breast disease (FCBD), unspecified laterality - N60.19 3 . E ssential hypertension - I10? 4. B lepharitis of left lower eyelid, unspecified type - H01.005 ? Plan: * Treatment: 2. B lepharitis of left lower eyelid, unspecified type Start Sulfacetamide Sodium Ointment, 10 %, 1 application into the lower eyelid of affected eye, Ophthalmic, Four times a day, 3 days, 5 Gram, Refills 1; S tart Sulfacetamide Sodium Solution, 10 %, 1 drop into affected eye, Ophthalmic, Four times a day, 3 days, 10 Packet, Refills 1. * Follow Up: 4 Months * Images: Billing Information: * Visit Code: 73928 Office Visit, Est Pt., Level 4. * Procedure Codes: * Electronic signature of Mookie Hernandez MD on 07/28/2025 at 09:12 AM EDT Sign off status: Pending * Provider: Mookie Hernandez M.D. Date: 07/17/2025 Generated for Lilianai do/Yaima/Isaelitting on: 0 07/28/2025 09:12 AM EDT History and Physical Notes * HPI (History of Present Illness) Category Sub-Category Detail Notes Category Not es Cardiology Short of Breath Chest Pain Palpitations Dizziness Examination Category Sub-Category Detail Notes Category Not es General Examination HEENT: sclera and c onjunctiva clear, PERRLA, TM's normal, translucent. Mild irritation of the left lower eye lid, no pustule. Heart: RSR Lungs: clear to auscultatio n Abdomen: soft and nontender, no organomegaly or masses Extremities: no leg edema General Appearance: NAD Skin: normal, no rash. To me, the axillary lesion seems to be a lipoma. See Dr. Parson's note. Neurologic Exam: Intact, gait normal Neck: supple, no lymphaden opathy Oral cavity: no lesions, mucosa m oist and WNL, no erythema Peripheral pulses: normal Back: normal Chest: normal shape and exp ansion
--- NOTE | 2025-07-28 09:30 | US_ITS ---
FINAL REPORT CLINICAL HISTORY: enlarge lymph node FINDINGS: Limited sonographic images of the left axillary region were obtained. There is a mildly enlarged left axillary lymph node measuring 3 cm in long axis with a benign ultrasound appearance. No other lymph nodes are identified. There is no fluid collection. IMPRESSION: The enlarged left axillary lymph node could be reactive or less likely neoplastic. Recommend continued follow-up. Reviewed, Interpreted and Dictated by Georgina Moya MD Transcribed by Agnieszka Bruce Authenticated and [facility]
--- NOTE | 2025-07-28 09:37 | MM_ITS ---
PROCEDURE INFORMATION: Exam: MG Bilateral Screening 3D Mammography Exam date and time: 07/28/2025 9:45 AM Age: 69 years old Clinical indication: Screening examination TECHNIQUE: Imaging protocol: Bilateral Screening tomosynthesis and 2D mammography including computer-aided detection (CAD) when performed. COMPARISON: 1. MG MM DIG SCREENING MAMM BI W/CAD 07/25/2024 9:42 AM 2. MG MM DIG SCREENING MAMM BI W/CAD 05/29/2023 9:09 AM FINDINGS: MAMMOGRAPHY: Breast composition: The breasts are heterogeneously dense, which may obscure small masses. Mass: None. Architectural distortion: None. Calcifications: No suspicious calcifications. Asymmetric density: None. Skin thickening: None. Axillary adenopathy: None. IMPRESSION: No mammographic evidence of malignancy. Annual screening is recommended unless otherwise clinically indicated. ASSESSMENT: BI-RADS Category 1: Negative.
== END 2025-07-28 23:59 | disposition home or self-care (01) ==
LOC: RAD 08:59
PROVIDERS: PCP Family Medicine; Visit Provider Surgery
DX: Z12.31 Encounter for screening mammogram for malignant neoplasm of breast (principal); R92.333 Mammographic heterogeneous density, bilateral breasts; R59.0 Localized enlarged lymph nodes
CPT/HCPCS: 76642; 77063; 77067